=== PATIENT | female | born 1990 | race Caucasian/White ===

== ENCOUNTER 2022-11-14 08:29 | Outpatient (CLI) | payer BC, SELFPAY ==
--- NOTE | 2022-11-14 08:45 | CRLHL7_ITS ---
For Patients: As a result of the Century Cures Act, medical imaging exams and procedure reports are released immediately into your electronic medical record. You may view this report before your referring provider. If you have questions, please contact your health care provider. INDICATION: First trimester scan, establish dates. COMPARISON: None. TECHNIQUE: Real-time south-scale imaging of the pelvis was performed. FINDINGS: Sonographic imaging demonstrates a single living intrauterine gestation. The embryo demonstrates a regular cardiac rate measuring 171 beats per minute. The embryo`s crown-rump length measurement of 1.7 cm corresponds to a gestational age of 8 weeks 1 day with a sonographic due date of 06/25/2023. There is a normal-appearing yolk sac. There are no gross abnormalities noted within the embryo at this early state of development. The gestational sac has a normal appearance. There is no evidence of a perigestational hemorrhage. The amount of fluid within the sac appears appropriate for gestational age. The cervix is closed. The myometrium appears normal. The ovaries are of normal size. Corpus luteal cyst right ovary. There are no suspicious fluid collections noted in the cul-de-sac. IMPRESSION: Normal first trimester OB ultrasound exam. Gestational age calculated at 8 weeks 1 day with a sonographic due date of 06/25/2023. Dictated by Jayme Roberto MD @ 11/14/2022 10:08:09 AM (Electronically Signed)
== END 2022-11-14 08:30 | disposition home or self-care (01) ==
LOC: US 08:30
PROVIDERS: Visit Provider Advanced Practice Midwife
DX: Z34.91 Encounter for supervision of normal pregnancy, unspecified, first trimester (principal); Z3A.08 8 weeks gestation of pregnancy
CPT/HCPCS: 76817; 86592; 86703; 86762; 86787; 86803; 86850; 86900; 86901; 87086; 87340

== ENCOUNTER 2023-02-05 14:51 | Outpatient (CLI) | payer BC, SELFPAY ==
--- NOTE | 2023-02-05 15:00 | CRLHL7_ITS ---
For Patients: As a result of the Century Cures Act, medical imaging exams and procedure reports are released immediately into your electronic medical record. You may view this report before your referring provider. If you have questions, please contact your health care provider. INDICATION: Evaluate anatomy. COMPARISON: 11/14/2022 TECHNIQUE: Real time south scale imaging of the fetus was performed as well as color Doppler analysis of the umbilical vessels. FINDINGS: Sonographic imaging demonstrates a single living intrauterine gestation. Fetus demonstrates a regular cardiac rate of 150 beats per minute. Fetus has a variable position. The placenta lies fundal posterior without evidence of placenta previa. The edge of the placenta is located 6.1 cm from the internal cervical os. Amniotic fluid volume appears normal. Single deepest vertical pocket: 6.0 cm. The cervix is closed and measures 3.7 cm in length. The composite ultrasound gestational age is calculated at 19 weeks 6 days with an estimated sonographic due date of 06/26/2023. The estimated weight is 336 grams which lies at the 38th %. The following biometric measurements were obtained: Biparietal diameter: 4.4 cm/19 weeks 2 days 12th% Head circumference: 16.3 cm/19 weeks 0 days 4th% Abdominal circumference: 15.6 cm/20 weeks 5 days 60th% Femur length: 3.2 cm/19 weeks 6 days 26th% The HC/AC ratio measures: 1.04 range (1.08-1.26) On anatomic survey, there is a normal appearance of the cerebral ventricles, cavum septi pellucidi, cisterna magna and cerebellum. The nose, lips, and facial profile appear normal. The cervical, thoracic and lumbar spine are well visualized and appear normal. There is a normal four-chamber heart view and the left and right ventricular outflow tracts appear normal. The diaphragm and stomach appear normal. The kidneys and bladder also appear normal. There is a normal three-vessel cord and cord insertion site. The four extremities appear normal. IMPRESSION: Normal OB ultrasound exam with concordance of clinical and sonographic dating. No intrinsic abnormalities noted on anatomic survey. Dictated by Jayme Roberto MD @ 02/06/2023 12:51:11 PM (Electronically Signed)
== END 2023-02-05 14:52 | disposition home or self-care (01) ==
LOC: US 14:52
PROVIDERS: PCP Advanced Practice Midwife; Visit Provider Advanced Practice Midwife
DX: Z34.92 Encounter for supervision of normal pregnancy, unspecified, second trimester (principal); Z3A.19 19 weeks gestation of pregnancy
CPT/HCPCS: 76805

== ENCOUNTER 2023-04-03 08:14 | Outpatient (CLI) | payer BC, SELFPAY | END 2023-04-03 08:15 | disposition home or self-care (01) | LOC: NFLDREF 04-05 09:08 | PROVIDERS: PCP Advanced Practice Midwife; Referring Provider Advanced Practice Midwife; Visit Provider Advanced Practice Midwife | DX: Z34.93 Encounter for supervision of normal pregnancy, unspecified, third trimester (principal) | CPT/HCPCS: 86592 ==

== ENCOUNTER 2023-05-10 07:16 | Outpatient (CLI) | payer BC, SELFPAY ==
[2023-05-10 07:25] VITALS: PULSE 83; O2SAT 99
[2023-05-10 07:30] VITALS: PULSE 85; O2SAT 98
[2023-05-10 07:35] VITALS: RESP 16; TEMP 36.7
[2023-05-10 07:36] VITALS: BP 118/65; PULSE 81
[2023-05-10 08:32] LABS: Appearance Urine Clear (Clear); Bilirubin Urine Negative (Negative); Blood Urine Negative (Negative); Color Urine Yellow (Yellow); Glucose Urine Negative (Negative); Ketones Urine Negative (Negative); Leukocyte Esterase Urine Negative (Negative); Nitrite Urine Negative (Negative); Protein Urine Trace (Negative); Specific Gravity Urine 1.015 (1.000-1.030); Urobilinogen Urine 0.2 (0.2-1.0); pH Urine 8.5 (5.0-8.5)
[2023-05-10 08:55] LABS: Bacteria Urine Few; RBC Urine 0-2 (0-2); WBC Urine 0-2 (0-5)
[2023-05-10 08:56] LABS: Trichomonas No Trichomonas Seen (None Seen); Yeast No Yeast Seen (None Seen)
[2023-05-10 08:57] LABS: Clue Cells No Clue Cells Seen (None Seen)
--- NOTE | 2023-05-10 09:27 | PC.OBNST ---
NST Note NST Note Start: 05/10/23 07:21 Freq: ONCE Status: Active Protocol: Document 05/10/23 09:25 TRICIA (Rec: 05/10/23 09:27 TRICIA [id number]) NST Note 2 Para (# of births) 1 EDC 06/23/23 Gestational Age In Weeks & Days 33 Weeks & 5 Days Patient Presented with Complaint(s) of Contractions/cramping,Vaginal bleeding,Decreased movement Reactive Yes Appropriate for Gestational Age Yes OLIVIER Ramos, RN Date 05/10/23 Reactive Yes Appropriate for Gestational Age Yes OLIVIER Morel RNC Date 05/10/23 OB NST charge Yes Complete NST Note via Write Note Yes The provider's electronic signature indicates the NST is reactive/appropriate for gestational age. *Note to provider: If an addendum is required, open the patient's chart and click on the note under the Nurse/Allied Health tab.
== END 2023-05-10 09:19 | disposition home or self-care (01) ==
LOC: OB OUT 07:16 → OB 07:17
PROVIDERS: Advanced Practice Midwife; PCP Advanced Practice Midwife; Visit Provider Advanced Practice Midwife
DX: O47.03 False labor before 37 completed weeks of gestation, third trimester (principal); Z3A.33 33 weeks gestation of pregnancy
CPT/HCPCS: 59025; 81003; 81015; 87086; 87210; 99213

== ENCOUNTER 2023-06-05 09:32 | Outpatient (CLI) | payer BC, SELFPAY ==
[2023-06-06 11:30] LABS: Strep B DNA Probe NEGATIVE (Negative)
[2023-06-06 11:42] LABS: Strep B Pen/Amox Allergy No
== END 2023-06-05 09:33 | disposition home or self-care (01) ==
PROVIDERS: PCP Advanced Practice Midwife; Visit Provider Advanced Practice Midwife
DX: Z34.93 Encounter for supervision of normal pregnancy, unspecified, third trimester (principal); Z3A.37 37 weeks gestation of pregnancy
CPT/HCPCS: 87081; 87653

== ENCOUNTER 2023-06-25 07:40 | Inpatient (IN) | payer BC, SELFPAY ==
[2023-06-25] VITALS (19 sets, daily range): BP systolic 112–132; BP diastolic 64–80; PULSE 66–88; RESP 16–18; TEMP 36.6–37.5; O2SAT 97–100; BMI 26.1
--- NOTE | 2023-06-25 07:52 | W.PM.LDBA ---
Subjective History of Present Illness Time Seen by Provider: 07:52 Date Seen: 06/25/23 Comments: Gretchen is being admitted to Labor and Delivery for active labor. She is a 33 year old G 2 P 1 at?40.2 weeks gestation. Her full history and physical was dictated by Camille on 06/05/23. Please see this for details. She states ctx started at 0600. Denies SROM. She is coping well with labor pain/contractions. Lance is with her for support. She is requesting an epidural for pain management. OB Problem List: : Lance, son: Amarjit H&P done by Joshua Hanna CNM on 06/05/2023 1. Remote Hx of Chlamydia, 2013 per patient Declined gc/c swab at [facility], Offer urine screening at 12 wk visit: declined 2. History of abnormal pap LISL in 2013, normal since Most recent 10/2022 NILM, HPV neg 3. Anemia. Hgb 10.2 at 28wks. Recommended EOD iron. Made diet changes. 34 weeks: 10.6 OB - Problem Based A/P Additional Plan (1) Uterine contractions: Status: Acute Plan at 40.2 weeks GBS negative Active labor complications: -anemia Labor complications -Variable decels noted w/ ctx on admit 1. Admit to L & D 2. Pt turned to her side to help with decels, which seemed to resolve. Will continue to monitor, position changes as needed. 3. Candidate for analgesia of choice. Requesting an epidural 4. Continuous monitoring r/t decels and epidural 5. IV access r/t epidural request 6. Expectant management at this time. 7. Anticipate progress to NVD. Delivery/Labor/Induction Plan Plan: expectant management OB Exam Physical Exam Narrative: VSS, afebrile? General Appearance:? Calm, cooperative.? No acute distress.? Normal affect.? Psychiatric Exam: Alert and oriented, appropriate affect? HEENT: normocephalic, neck supple, full ROM? Respiratory:? Symmetrical chest wall movement.? Normal respiratory effort.? Clear to auscultation? Cardiac:? regular rate and rhythm? Abdomen: Gravid, non tender? Extremities:? normal and trace edema? Skin: warm, dry.??? Ctx:? Q 1-3 min apart.? ? Moderate?- Strong? FHTs:? Baseline: 135.? Variability: moderate.?? Accels: none noted shortly after admit.??? Decels:? Variable decels w/ ctx.? SVE: 5-6/100/-1? Membranes: intact? Detailed Labor and Delivery Exam Patient Gravid: Yes
[2023-06-25] MEDS: LACTATED RINGERS 1000 ML 1,000 ML 1200 ML IV (08:05)
[2023-06-25] MEDS: OXYTOCIN 30 unit/500 ML in NS 30 UNIT/500 ML BAG 300 UNIT IVPB (08:19)
[2023-06-25 08:20] LABS: Basophils Absolute Auto 0.02 K/uL (0.00-0.30); Basophils Percent Auto 0.2 % (0.0-3.0); Eosinophils Absolute Auto 0.04 K/uL (0.00-0.50); Eosinophils Percent Auto 0.5 % (0.0-7.0); Hematocrit 35.7 % (33.0-51.0); Hemoglobin* 11.9 gm/dL (12.0-16.0); Immature Granulocytes Abs Auto 0.01 K/uL (0.00-0.30); Immature Granulocytes Pct Auto 0.1 %; Lymphocytes Percent Auto 25.2 % (20-44); Mean Corpuscular HGB Conc 33 gm/dL (32-36); Mean Corpuscular Hemoglobin 31 pg (26-34); Mean Corpuscular Volume 94 fL (80-100); Monocytes Percent Auto 7.1 % (0.0-11.0); Neutrophils Absolute Auto 5.84 K/uL (1.7-7.0); Neutrophils Percent Auto 66.9 % (42.0-72.0); Platelet Count* 269 K/uL (140-440); RDW Coefficient of Variation % 13.6 % (11.5-15.5); Red Blood Count 3.81 m/uL (4.00-5.20); White Blood Count* 8.73 K/uL (4.50-11.00)
[2023-06-25 08:22] LABS: Slide Review Reflex No
[2023-06-25] MEDS: miSOPROStoL 800 MCG/4 TABLET PR (08:23)
--- NOTE | 2023-06-25 08:36 | W.PM.OBVAGDE ---
OB Procedure Vag Delivery Mother Details Mother Details: The patient is a 33 year-old, 2, Para 1, admitted on 06/25/23 at 40.2 Days gestation. : 2 Para: 2 Weeks Gestation: 40.2 Admission Date: 06/25/23 Additional Details Amniotic Membrane Status: SROM Amniotic Membrane Rupture Date: 06/25/23 Amniotic Membrane Rupture Time: 08:18 Amniotic Membrane Fluid Description: Clear Analgesia/Anesthesia Type: None Waterbirth: No Pitcoin: No ([facility] only) Intrapartal Events: Precipitous Labor <3 Hrs Labor Onset: 06:00 Complete: 08:10 Pushin:10 Heart: heart tones during second stage:145, mod variability prior to pushing. Audibly down to 60-80s w/ variable decels during pushing. Return to baseline 100-120 briefly between. Delivery Details Delivery Date: 06/25/23 Delivery Time: 08:18 Route of delivery: Gender: Female Viability: Alive; Heart Rate Present Position at Delivery: OA Delivery Details: Gretchen arrived from home with strong frequent ctx. On admit she was 5-6 cm, but shortly after c/o increased pressure. SVE, very small anterior lip/+1 station. Mildly bearing down with ctx. Variable ctx noted w/ ctx/pushing. Pt encouraged to push, with quick progress. head delivered, and nuchal cord noted. Gentle traction applied in attempt to reduce it, and noted to be tight. Decision made to delivery through, but prior to removing the gentle traction, cord avulsed. Body delivered quickly at that time, and side of cord grasped firmly as abdomen delivered. Held tightly until able to clamp with hemostat. Infant to prewarmed open warmer, but noted to be vigorous prior to transfer to warmer. At 0818 a viable? female infant delivered in vertex OA presentation over intact perineum via spontaneous vaginal?delivery.? Infant weight pending. ? 8 at 1 minute and 9 at 5 minutes. ?Shoulder dystocia: no. ?Nuchal cord: yes, right, avulsed w/ delivery. Placenta delivered spontaneously and complete at 0822 with a 3 vessel cord. Marginal cord insertion. Mother and infant were stable after?delivery. Lacerations:? Bilateral periurethral lacerations, not bleeding, not repaired Blood loss: 225 mL. Blood loss measurement type: QBL? 1 Minute Interval Total Score: 8 5 Minute Interval Total Score: 9 Additional Details Shoulder Dystocia: No Placenta Delivery Time: 08:22 Placental Delivery Description: Spontaneous Procedure Done: Global Blood Loss: 225 Laceration: Periurethral - 1st Degree Episiotomy Description: None Blood Loss Measurement Type: QBL Bakri Used: No Sponge/Need Count Correct: Yes Cord Vessel Description: 3 Vessels, Nuchal Cord, Tight and Avulsion Event Summary Status: Mother and were stable after delivery. Disposition: floor
[2023-06-26] VITALS: BP 118/68; PULSE 79; RESP 18; TEMP 36.6; O2SAT 96
[2023-06-26 04:45] VITALS: BP 118/71; PULSE 71; RESP 18; TEMP 36.4; O2SAT 97
--- NOTE | 2023-06-26 08:07 | PM.OBDSVD1 ---
DS: Providers Provider Date Seen: 06/26/23 Date of admission: 06/25/23 07:40 Primary care physician: Conchita Hanna CNM Admitting Clinician: Alisha Loyd CNM Attending Physician on discharge: Alisha Loyd CNM Date of Discharge: 06/26/23 DS: Diagnosis Discharge Diagnosis (1) care following vaginal delivery: Status: Acute (2) Lactating mother: Status: Acute Exam Narrative: Exam Narrative: GENERAL APPEARANCE:? normal affect, alert, no distress? MOOD:? appropriate? CHEST:? clear to auscultation and percussion? HEART:? regular rate and rhythm? ABDOMEN:? soft, non-tender the uterine fundus is 2 cm Below Umbilicus, Midline and is appropriate for the stage of recovery. ? PERINEUM:? mild edema of the perineum, there is bilateral periurethral (not repaired) that is healing well.? EXTREMITIES:? normal and no edema? Patient has no complaints? No active bleeding?? Doing well? She is requesting discharge home.? Const: Vital Signs, click to edit/add: Vital Signs - 24 hr 06/25/23 08:14 06/25/23 08:19 06/25/23 08:26 Temperature Pulse Rate 67 Pulse Rate [Pulse Oximeter] Respiratory Rate Blood Pressure 124/66 Blood Pressure [Le ft Arm] Pulse Oximetry 100 [facility] 08:41 06/25/23 08:41 06/25/23 08:56 Temperature 98.3 F Pulse Rate 76 75 Pulse Rate [Pulse Oximeter] Respiratory Rate 18 Blood Pressure 125/77 132/66 Blood Pressure [Le ft Arm] Pulse Oximetry [facility] 06/25/23 09:11 06/25/23 09:26 06/25/23 09:26 Temperature 98.6 F Pulse Rate 72 68 Pulse Rate [Pulse Oximeter] Respiratory Rate 16 Blood Pressure 122/70 122/73 Blood Pressure [Le ft Arm] Pulse Oximetry [facility] 06/25/23 09:41 06/25/23 09:41 06/25/23 09:56 Temperature 98.7 F Pulse Rate 72 69 Pulse Rate [Pulse Oximeter] Respiratory Rate 16 Blood Pressure 127/80 124/79 Blood Pressure [Le ft Arm] Pulse Oximetry [facility] 06/25/23 10:11 06/25/23 10:26 06/25/23 10:41 Temperature Pulse Rate 76 78 66 Pulse Rate [Pulse Oximeter] Respiratory Rate Blood Pressure 119/78 114/65 117/67 Blood Pressure [Le ft Arm] Pulse Oximetry Oxygen Delivery Me thod 06/25/23 10:41 06/25/23 11:29 06/25/23 11:45 Temperature 98.7 F 99.5 F 97.9 F Pulse Rate Pulse Rate [Pulse Oximeter] 76 Respiratory Rate 16 16 Blood Pressure Blood Pressure [Le ft Arm] 112/64 Pulse Oximetry 98 Oxygen Delivery Me thod Room Air 06/25/23 15:25 06/25/23 21:00 06/26/23 00:00 Temperature 98.6 F 98.4 F 97.8 F Pulse Rate Pulse Rate [Pulse Oximeter] 73 77 79 Respiratory Rate 18 18 18 Blood Pressure Blood Pressure [Le ft Arm] 129/77 118/72 118/68 Pulse Oximetry 97 97 96 Oxygen Delivery Me thod Room Air Room Air Room Air 06/26/23 04:45 Temperature 97.5 F L Pulse Rate Pulse Rate [Pulse Oximeter] 71 Respiratory Rate 18 Blood Pressure Blood Pressure [Le ft Arm] 118/71 Pulse Oximetry 97 Oxygen Delivery Me thod Room Air Documenting provider has reviewed patient's vital signs: yes OB - DS: Summary Hospital Course Hospital Course: Patient is a 33year old, G 2 now P 2? admitted on 06/25/23 at 40 Weeks, 2 Days gestation for active labor.? She had an uncomplicated vaginal delivery.? She delivered a viable female infant.? She is breast feeding and reports things are well.? the patient has done well.? Her pain is well controlled with current medications.? She has no new complaints.? Vitals have been stable. She has remained afebrile. She is voiding without difficulty. She is passing gas and has had a small bowel movement. She is ambulating and denies any dizziness. She is planning mini pill for control.?She declines a ibuprofen prescription as she has needed very little medications since delivery. Peripartum Data delivery method: Vaginal Laceration description: Periurethral - 1st Degree (not repaired) Episiotomy description: None Infant Gender: Female Discharge Plan: Home Status at Discharge Functional status at discharge: independent ambulation Overall status at discharge: patient is progressing back to baseline Time Spent with Patient Time attestation: Total time spent providing and/or coordinating discharge services: Discharge Plan Discharge Disposition: Home, Self-Care Date of Admission: 06/25/23 07:40 Attending Provider on Discharge: Shawna Briseno Primary Care Provider: Conchita Hanna Condition: Stable Anticipated Discharge Date/Time: 06/26/23 10:00 Discharge Medications: New docusate sodium 100 mg Capsule 100 mg PO DAILY Qty: 60 0RF Rx Instructions: Take 1-2 tablets daily as needed for constipation. Continued DHA 200 mg capsule 200 mg PO DAILY Discharge Orders: Discharge Order (Routine); Ordered 06/26/23 Ordered By: Shawna Briseno Consulting provider completed their portion of the discharge: Yes Patient Education: OB Vaginal/Breast Feeding Activity Level: Activity as Tolerated Discharge Diet: Regular Follow Up Appointments: [facility] [Provider Group] Conchita Hanna CNM [Primary Care Provider] - Forms: [employer] Info Instructions
[2023-06-26 08:33] VITALS: BP 123/79; PULSE 71; RESP 17; TEMP 36.4; O2SAT 96
== END 2023-06-26 10:50 | disposition home or self-care (01) | DRG 560 ==
LOC: OB 07:41
PROVIDERS: Admitting Provider Advanced Practice Midwife; PCP Advanced Practice Midwife; Visit Provider Advanced Practice Midwife
DX: O70.0 First degree perineal laceration during delivery (principal); Z3A.40 40 weeks gestation of pregnancy; Z37.0 Single live birth
CPT/HCPCS: 36415; 85025; 86850; 86900; 86901; A9270; J7120

== ENCOUNTER 2024-09-23 15:57 | Outpatient (CLI) | payer BC, SELFPAY | END 2024-09-23 15:58 | disposition home or self-care (01) | PROVIDERS: Visit Provider Otolaryngology | DX: J34.2 Deviated nasal septum (principal); Z13.29 Encounter for screening for other suspected endocrine disorder | CPT/HCPCS: 83036; 83516; 84443; 86038; 86431; 86618 ==

== ENCOUNTER 2024-09-30 09:17 | Outpatient (CLI) | payer BC, SELFPAY ==
--- NOTE | 2024-09-30 10:00 | CRLHL7_ITS ---
For Patients: As a result of the Century Cures Act, medical imaging exams and procedure reports are released immediately into your electronic medical record. You may view this report before your referring provider. If you have questions, please contact your health care provider. Indication: Chronic sinusitis, congestion Technique: Performed without IV contrast Comparison: None available Findings: Frontal sinuses: Clear. Ethmoid sinuses: Clear. Maxillary sinuses: Minimal mucosal thickening in both maxillary sinuses. The maxillary sinus drainage pathways are patent on both sides. Sphenoid sinuses: Clear, including both sphenoethmoidal recesses. Nasal Cavity: Mild mucous is present on the right. No polyp. Nasal septum is midline. No TMJ abnormalities identified. The visualized portions of the orbits, intracranial contents and upper soft tissue neck are grossly negative. Impression: 1. Minimal maxillary sinus disease. 2. Nasal septum is midline. Please note that all CT scans at this facility use dose modulation, iterative reconstruction, and/or weight-based dosing when appropriate to reduce radiation dose to as low as reasonably achievable. Dictated by Jayme Roberto MD @ 09/30/2024 12:55:21 PM (Electronically Signed)
== END 2024-09-30 09:18 | disposition home or self-care (01) ==
LOC: CT 09:18
PROVIDERS: Visit Provider Otolaryngology
DX: J32.9 Chronic sinusitis, unspecified (principal); J32.0 Chronic maxillary sinusitis
CPT/HCPCS: 70486

== ENCOUNTER 2024-10-12 09:25 | Outpatient (CLI) | payer BC, SELFPAY | END 2024-10-12 09:26 | disposition home or self-care (01) | PROVIDERS: Visit Provider Physician Assistant | DX: R76.8 Other specified abnormal immunological findings in serum (principal); Z13.220 Encounter for screening for lipoid disorders; Z13.29 Encounter for screening for other suspected endocrine disorder | CPT/HCPCS: 80061; 84443; 86038; 86039 ==

== ENCOUNTER 2025-02-17 15:39 | Outpatient (CLI) | payer BC, SELFPAY | END 2025-02-17 15:40 | disposition home or self-care (01) | PROVIDERS: PCP Family Medicine; Visit Provider Family Medicine | DX: R53.83 Other fatigue (principal); R76.8 Other specified abnormal immunological findings in serum; I77.82 Antineutrophilic cytoplasmic antibody [ANCA] vasculitis | CPT/HCPCS: 80053; 82306; 82607; 82728; 83540; 83550; 84443 ==

== ENCOUNTER 2025-09-28 12:32 | Day surgery (SDC) | payer BC, SELFPAY ==
--- OUTSIDE RECORDS SUMMARY | 2025-08-24 09:30 | XMS_ITS | Encounter Summary ---
Author Organization [facility] Address [address] [place] [id number] Care Team Providers [employer] Name Role Phone None Reported, Pcp Primary Care Provider Unavail able Reason for Visit * Outpatient (Routine) - Closed Specialty Diagnoses / Procedures Referred By Yue patel Referred To Contact Diagnoses Saddle Nose Ashley South P.A.-C. [address] [place] [phone] Phone: tel: fax: [facility] Referral ID Status Reason Start Date Expiration Date Visits Re quested Visits Authorized [id number] Closed 07/05/2025 01/04/2027 1 1 Encounter Details Date Type Department Care Team (Latest Contact Info) Description 08/24/2025 9:30 AM CDT Comprehensive [facility] [place], [place] [address] [place] [phone] Zachariah Dow III, M.D. 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 No 12/29/2024 Hunger Vital Sign Answer Date Recorded Within the past 12 months, y ou worried that your food would run out before you got the money to buy more. Never true 12/29/19 25 Within the past 12 months, t he food you bought just didn't last and you didn't have money to get more. Never true 12/29/2024 PRAPARE - Transportation Answer Date Re corded In the past 12 months, has l ack of transportation kept you from medical appointments or from getting medications? No 12/03 In the past 12 months, has l ack of transportation kept you from meetings, work, or from getting things needed for daily living? No 12/29/2024 Housing Stability Answer Date Recorded What is your living situation today? I have a [facility] place to live 12/29/2024 Comments Unknown Sex and Gender Information Value Date Recorded Sex Assigned at Female 01/01/2025 8:04 AM ASSEMBLER ARRANGER Legal Sex Female 7:11 AM ASSEMBLER ARRANGER Gender Identity Female 01/01/2025 8:04 AM ASSEMBLER ARRANGER Sexual Orientation Straight 01/01/2025 8: 04 AM ASSEMBLER ARRANGER documented as of this encounter Progress Notes * Ashley South P.A.-C. - 08/24/2025 9:30 AM CDT SUBJECTIVE CHIEF COMPLAINT / REASON FOR VISIT Gretchen Abdi is a 35 y.o. female who returns for discussion of nasal surgery. 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 She has also been started on budesonide and mupirocin rinses by our Rhinology colleagues and has noticed a significant improvement in her nasal crusting and pain since using these for the past few months. She feels that she is doing well and is in terested in proceeding with surgery for correction of the saddle nose deformity and nasal obstruction. She continues to be a non-smoker. She has not had prior surgery on her nose or chest. OBJECTIVE PHYSICAL EXAMINATION Physical Exam General: Alert and oriented. No acute distress. Appearance: Well nourished. Behavior: Appropriate, communicative. Head and Face: Normocephalic, atraumatic. No weakness. Skin: Color, texture normal. Eyes: EOMI. Nose: Skin thickness: medium. Upper third: straight. Middle third: widened, inverted V deformity. Lower third: convex lateral crura. Base: triangular, no collapse with normal inspiration. Profile: saddle nose deformity. Septum: largely straight. Turbinates: enlarged on the right. Mucosa: mildly inflamed with some crusting present. Decongestion: improvement with decongestion. Neuro/Psychiatric: Alert and oriented x 3, affect normal. Good voice quality. 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 Since her disease is in remission, we can proceed with surgery. To address the nasal destruction (saddle nose deformity) that is a consequence of the vasculitis, we have offered her a: 1) Septorhinoplasty 2) Inferior turbinate outfracture 3) Costal cartilage harvest This cannot be corrected with a septoplasty alone. Surgery would be performed under general anesthesia on an outpatient basis. We reviewed the recovery process and expectations. She is in agreement with photos simulating the surgical result. We will submit for PWA and see her back for a listing visit prior to surgery. She is hopeful to have surgery yet this year. All questions and concerns were addressed. Patient understands and agrees with the plan. Time spent with patient (counseling time more than 50% of visit:) 20 minutes. Procedures documented in this encounter Plan of Treatment Upcoming Encounters Date Type Department Care Team (Latest Contact Info) Description 09/30/2025 7:30 AM CDT Appointment Department of Laboratory Medicine in [place], [place] [address] [place] [phone] Rodo Yeh M.D. [address] [place] [phone] 11/23/2025 4:00 PM ASSEMBLER ARRANGER Procedure visit [facility] [place], [place] [address] [place] [phone] Zachariah Dow III, M.D. [address] [place] [phone] 11/24/2025 8:00 AM ASSEMBLER ARRANGER Hospital Encounter Post Anesthesia Care Unit in [place], [place] [address] [place] [phone] Zachariah Dow III, M.D. [address] [place] [phone] 11/24/2025 8:00 AM ASSEMBLER ARRANGER - 11/24/2025 3:27 PM ASSEMBLER ARRANGER Surgery [facility] [address] [place] [phone] Zachariah Dow III, M.D. [address] [place] [phone] SEPTORHINOPLASTY 11/26/2025 8:30 AM ASSEMBLER ARRANGER Procedure visit [facility] [place], [place] [address] [place] [phone] Zachariah Dow III, M.D. [address] [place] [phone] 12/01/2025 8:00 AM ASSEMBLER ARRANGER Procedure visit [facility] in [place], [place] [address] [place] [phone] Ashley South P.A.-C. 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
[2025-09-28] VITALS (19 sets, daily range): BP systolic 107–130; BP diastolic 58–82; PULSE 60–81; RESP 16–18; TEMP 36.8–38; O2SAT 95–100; BMI 20.6
--- NOTE | 2025-09-28 12:41 | ED.GENADULT ---
HPI - General Adult General Chief complaint: Abdominal Pain Stated complaint: Abdominal pain Time Seen by Provider: 09/28/25 12:36 History of Present Illness HPI narrative: Patient presents to the emergency department complaining of abdominal pain that started at about 0900 this morning. Pain is across lower abdomen. Patient denies any vaginal bleeding. Denies any nausea, vomiting, or diarrhea. 35-year-old woman presenting to the emergency department with complaint of low abdominal pain seems to be going across her lower abdomen. Constant. Sharp. Some radiation into the back. Not actually with any nausea. Did have breakfast around 8:00 a.m. An hour later started to have some pain she was at work. And feel like this is related to needing a bowel movement or related to gas. Has been experiencing regular bowel movements with 1 today that did not affect her pain. No dysuria. No history of ovarian cysts or abdominal surgeries. No fever. Related Data Home Medications ?Medication ?Instructions ?Recorded ?Confirmed budesonide 0.5 mg/2 mL suspension 0.5 mg inhalation BID 02/17/25 09/28/25 for nebulization folic acid 1 mg tablet 1 mg PO QDAY 02/17/25 09/28/25 methotrexate (PF) 25 mg/0.4 mL 25 mg subcut QWEEK 02/17/25 09/28/25 subcutaneous auto-injector mupirocin 2 % topical ointment 1 applic topical BID 02/17/25 09/28/25 Previous Rx's ?Medication ?Instructions ?Recorded norethindrone acetate 1 mg-ethinyl 1 tab PO QDAY #63 tabs 12/24/24 estradiol 20 mcg tablet (Junel) Allergies Allergy/AdvReac Type Severity Reaction Status Date / Time No Known Drug Allergies Allergy Verified 09/28/25 17:08 Review of Systems Status of ROS: Reports: 6 or more systems reviewed and unremarkable except as noted in History and below [facility] Medical History Low grade squamous intraepith lesion on cytologic smear vagina (lgsil) ?R87.622 - Low grade squamous intraepithelial lesion on cytologic smear of vagina (LGSIL) (ICD-10) Surgical History Vaginal delivery ?O80 - Encounter for full-term uncomplicated delivery (ICD-10) H/O wisdom tooth extraction (2013) ?K08.409 - Partial loss of teeth, unspecified cause, unspecified class (ICD-10) Family History Maternal Grandfather Skin cancer Liver cancer, Onset Age: 84 Paternal Grandmother No problems noted. 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 Partner: Lance, Business Analysis Specialist [place]; Lives with: Amarjit Lucas Pets: Cat Abuse: Denies past/present Special Diet: Denies Ok with a blood transfusion: yes Culture or anabaptism beliefs: denies RISK FACTORS Exercise Times/wk: Cardio and Strength Training, gym daily Depression/Anxiety: No hx Seat Belt Use: Routinely Smoking: Denies past/present Alcohol/day: Denies while ; Occasional/social Caffeine: 1 cup of coffee Drug Use: Denies past/present Chicken Pox: Yes as a child MRSA: Denies What is your current living situation?: I presently have a place to live Problems where you live: no known problems In the past 12 months, utilities in danger of being shut off: no In past 12 months, lack of transportation kept you from medical appts, meetings, work, or getting things needed for daily living: no In the past 12 mos, have been you worried that your food would run out before you had money to buy more?: never true In the past 12 mos, the food you bought just didn't last and you didn't have money to buy more?: never true Smoking Status: Never smoker How often does anyone, including family, friends and others, physically hurt you: never How often does anyone, including family, friends and others, insult or talk down to you: never How often does anyone, including family, friends and others, threaten you with harm: never How often does anyone, including family, friends and others, scream or curse at you: never Exam Narrative: Exam Narrative: Pleasant. Calm. Breathing easily. Lungs appear clear. The heart in regular rate and rhythm without murmur or gallop. Abdomen is soft and quite tender in the right lower quadrant a little bit into the adnexal area and then across the abdomen. No peritoneal signs. No flank pain. Skin is warm and dry without apparent rash. She is well-perfused. Const: Vital Signs, click to edit/add: Vital Signs - 24 hr 09/28/25 12:34 09/28/25 14:02 09/28/25 14:03 Temperature 98.3 F Pulse Rate 63 72 Pulse Rate [Right Pulse Oximeter] 67 Respiratory Rate 18 Blood Pressure 107/71 Blood Pressure [Ri ght Upper Arm] 115/71 Pulse Oximetry 100 100 100 Oxygen Delivery Me thod Room Air 09/28/25 14:15 Temperature Pulse Rate 79 Pulse Rate [Right Pulse Oximeter] Respiratory Rate Blood Pressure Blood Pressure [Ri ght Upper Arm] Pulse Oximetry 99 Oxygen Delivery Me thod Documenting provider has reviewed patient's vital signs: yes Course Vital Signs Vital signs: Initial Vital Signs Temperature 98.3 F 09/28/25 12:34 Temperature Source Temporal Artery Scan 09/28/25 12:34 Pulse Rate 67 09/28/25 12:34 Pulse Rhythm Regular 09/28/25 12:34 Pulse Strength 3+ Normal 09/28/25 12:34 Respiratory Rate 18 09/28/25 12:34 Blood Pressure 115/71 09/28/25 12:34 Blood Pressure Mean 85 09/28/25 12:34 Blood Pressure Position Sitting 09/28/25 12:34 Pulse Oximetry 100 09/28/25 12:34 Oxygen Delivery Method Room Air 09/28/25 12:34 Vital Signs Temperature 98.3 F 09/28/25 12:34 Pulse Rate 67 09/28/25 12:34 Respiratory Rate 18 09/28/25 12:34 Blood Pressure 115/71 09/28/25 12:34 Pulse Oximetry 100 09/28/25 12:34 Oxygen Delivery Method Room Air 09/28/25 12:34 Temperature 98.3 F 09/28/25 12:34 Pulse Rate 79 09/28/25 14:15 Respiratory Rate 18 09/28/25 12:34 Blood Pressure 107/71 09/28/25 14:02 Pulse Oximetry 99 09/28/25 14:15 Oxygen Delivery Method Room Air 09/28/25 12:34 Medications Administered Medications: Discontinued Medications Generic Name Dose Route Start Last Admin Trade Name Wendy PRN Reason Stop Dose Admin Hydromorphone HCl 0.5 mg 09/28/25 17:52 09/28/25 18:01 Hydromorphone 0.5 Mg/0.5 Ml Inj IVP 09/28/25 17:53 0.5 mg ONCE ONE Administration Sodium Chloride 1,000 mls @ 1,000 mls/hr 09/28/25 12:52 09/28/25 14:35 0.9 % Sodium Chloride 1000 Ml IV 09/28/25 13:51 Infused .Q1H ONE Infusion Ketorolac Tromethamine 30 mg 09/28/25 12:52 09/28/25 13:05 Ketorolac 30 Mg/Ml Inj IVP 09/28/25 12:53 30 mg ONCE ONE Administration Morphine Sulfate 4 mg 09/28/25 16:49 09/28/25 17:06 Morphine 4 Mg/Ml Inj IVP 09/28/25 16:50 4 mg ONCE ONE Administration Medical Decision Making MDM Narrative Medical decision making narrative: Would consider appendicitis leading in differential at this point. Does not appear to experiencing constipation. This could be ovarian cyst rupture although it seems to be little atypical for this in presentation and on exam. Does have vasculitis history; doubtful correlation here. Ectopic? Will be initiating IV. Ketorolac for pain. Normal saline. Imaging pending for confirmation. While rather slim, anticipate doing this imaging without IV contrast. By my independent review of CT imaging calcifications are noted in the right lower abdomen. Radiology over-read below INDICATION: Right lower abdominal pain. COMPARISON: None available. TECHNIQUE: CT of the abdomen and pelvis without intravenous contrast. Please note that all CT scans at this facility use dose modulation, iterative reconstruction, and/or weight-based dosing when appropriate to reduce radiation dose to as low as reasonably achievable. FINDINGS: The study is performed without intravenous contrast. This limits the sensitivity of the exam for the detection bowel pathology, focal lesions of the abdominopelvic viscera and vascular pathology including significant vascular stenosis, occlusion and dissection. ABDOMEN Liver: Normal contour and attenuation. No significant focal lesion. No intrahepatic biliary ductal dilatation. Gallbladder: Normal size. No pericholecystic inflammatory changes. Normal common duct caliber. Pancreas: Normal contour and attenuation. No peripancreatic inflammatory changes. No significant focal lesion. Normal main duct caliber. Spleen: Not enlarged. No significant focal lesion. Adrenal Glands: Symmetrical adrenal glands. No significant focal lesion. Kidneys: Normal bilateral renal attenuation. No significant focal lesion. No nephrolith. No dilatation of the intrarenal collecting systems. No ureteral stone. Nondilated ureters. Gastrointestinal tract: Mild prominence of the horizontal (3rd) duodenal segment in the midline (series 2; image 50) considered within physiologic limits of normal, most likely due to normal duodenal peristalsis. Otherwise normal caliber, attenuation and wall thickness of the gastrointestinal tract. No inflammatory changes. Normal small bowel mesentery. Multiple appendicoliths (series 4; images 39, 46). The appendix measures 9 mm in caliber, at the upper limit of normal. No significant periappendiceal fat stranding or free fluid is identified to indicate acute appendicitis. Vascular: Normal outer wall to outer wall abdominal aortic caliber. Patency and luminal caliber of the abdominopelvic arterial and venous vasculature cannot be assessed on this noncontrast study. Peritoneal Cavity/Retroperitoneum: No ascites. No adenopathy. PELVIS No bladder lesion is identified. No significant incidental findings related to the uterus or uterine adnexa. Small volume low density pelvic ascites within physiologic limits of normal. No adenopathy. SKELETON AND BODY WALL No acute or significant incidental findings. LOWER THORAX Partially included lower thoracic wall, lungs, pleural spaces and mediastinum are otherwise without significant incidental findings. IMPRESSION: 1. No findings to explain right lower abdominal pain. 2. Multiple appendicoliths (3) without associated imaging findings of acute appendicitis. Appendicoliths have been described in association with acute appendicitis. Patient management should be based upon clinical grounds. Management options include clinical follow-up, with or without follow-up imaging as clinically appropriate, and surgical consultation if indicated. 3. No other significant incidental findings. Small volume low-attenuation pelvic free fluid is considered to be within physiologic limits of normal. (NB: The study is performed without intravenous contrast. This limits the sensitivity of the exam for the detection bowel pathology, focal lesions of the abdominopelvic viscera and vascular pathology including significant vascular stenosis, occlusion and dissection.) Please note that all CT scans at this facility use dose modulation, iterative reconstruction, and/or weight-based dosing when appropriate to reduce radiation dose to as low as reasonably achievable. Dictated by Cullen Salinas MD @ 09/28/2025 3:37:17 PM Discuss these findings with General surgery. with Gretchen and her on the phone. Labs from 3 months ago that Gretchen available show what I would presume to be baseline absolute neutrophil count around 3 and half. Today is closer to 11. In consultation decided to have more definitive imaging with IV contrasted CT abdomen pelvis. Results are similar with measured 13 mm dilated appendix with number of appendicoliths. Still without periappendiceal inflammatory changes. Recommendations are to proceed with appendectomy sooner than later. Gretchen and her are in agreement. Anticipate arrival of General surgery and to OR for appendectomy. Pain has also been increasing and morphine was not helpful. Ordered for a dose of Dilaudid. INDICATION: Recheck for appy TECHNIQUE: CT abdomen and pelvis acquired with 58 cc Isovue 317 IV contrast. COMPARISON: CT abdomen and pelvis September 28, 2025 FINDINGS: Lower chest: Unremarkable. Liver: Normal in size and attenuation. No suspicious masses. Gallbladder and bile ducts: No stones or inflammation. No biliary dilatation. Pancreas: No mass or inflammation. Spleen: Normal in size. No masses. Adrenal glands: No suspicious mass. Kidneys: Bilateral kidneys are normal in size with symmetric enhancement. No nephrolithiasis or hydronephrosis. GI tract: No bowel obstruction. Redemonstration of few appendicolith, with a dilatation of appendix at the base measuring 13 millimeter, grossly similar to previous CT. There is no adjacent inflammatory changes. No localized bowel wall thickening or inflammation. Moderate fecal retention. Vasculature: Abdominal aorta is normal in caliber. Lymph nodes: No lymphadenopathy. Peritoneum/Abdominal Wall: No free air or significant free fluid. Pelvis: Unremarkable. Bones: Unremarkable for age. IMPRESSION: Redemonstration of dilatation of appendix at the base with few appendicoliths. No adjacent inflammatory changes to suspect imaging findings of acute appendicitis. Please note that all CT scans at this facility use dose modulation, iterative reconstruction, and/or weight-based dosing when appropriate to reduce radiation dose to as low as reasonably achievable. Dictated by Jyotsna Camejo MD @ 09/28/2025 5:35:22 PM Medical Records Medical records reviewed: Yes I reviewed the patient's medical records Lab Data Lab results reviewed: Yes I reviewed the patient's lab results Labs: Lab Results 10/28/25 10/28/25 Range/Units 13:10 14:18 WBC 12.45 H (4.50-11.00) K/uL RBC 3.73 L (4.00-5.20) m/uL Hgb 12.6 (12.0-16.0) gm/dL Hct 37.9 (33.0-51.0) % MCV 102 H (80-100) fL MCH 34 (26-34) pg MCHC 33 (32-36) gm/dL RDW Coeff of Edgardo 13.8 (11.5-15.5) % Plt Count 205 (140-440) K/uL Neut % (Auto) 87.2 H (42.0-72.0) % Lymph % (Auto) 7.1 L (20-44) % [place] % (Auto) 5.4 (0.0-11.0) % Eos % (Auto) 0.1 (0.0-7.0) % Baso % (Auto) 0.1 (0.0-3.0) % Neut # (Auto) 10.90 H (1.7-7.0) K/uL Lymph # (Auto) 0.90 (0.90-2.90) K/uL [place] # (Auto) 0.70 (0.00-0.90) K/UL Eos # (Auto) 0.00 (0.00-0.50) K/uL Baso # (Auto) 0.00 (0.00-0.30) K/uL Abs Immat Gran (auto) 0.00 (0.00-0.30) K/uL Imm/Tot Granulo (auto) 0.1 % Sodium 136 (135-149) mmol/L Potassium 3.9 (3.6-5.1) mmol/L Chloride 105 (96-114) mmol/L Carbon Dioxide 23 (20-32) mmol/L Anion Gap 8 (7-15) mEq/L BUN 19 (5-24) mg/dL Creatinine 1.0 (0.5-1.5) mg/dL Estimated Creat Clear 68.76 Estimated GFR 76 ml/min Glucose 123 H (60-115) mg/dL Calcium 9.1 (8.4-10.6) mg/dL Total Bilirubin 0.7 (0.1-1.5) mg/dL Direct Bilirubin 0.2 (0.0-0.5) mg/dL AST 32 (12-35) U/L ALT 33 (4-35) U/L Alkaline Phosphatase 40 (40-150) U/L C-Reactive Protein < 0.5 L (0.5-1.0) mg/dL Total Protein 7.2 (6.0-8.3) g/dL Albumin 4.5 (3.3-5.0) g/dL Urine Color Yellow (Yellow) Urine Appearance Cloudy A (Clear) Urine pH 8.5 (5.0-8.5) Ur Specific [place] 1.015 (1.000-1.030) Urine Protein Negative (Negative) Urine Glucose (UA) Negative (Negative) Urine Ketones 3+ A (Negative) Urine Blood Negative (Negative) Urine Nitrite Negative (Negative) Urine Bilirubin Negative (Negative) Urine Urobilinogen 0.2 (0.2-1.0) Ur Leukocyte Esterase Negative (Negative) Urine RBC 0-2 (0-2) Urine WBC 0-2 (0-5) Ur Squamous Epith Cells None (None-Few) Amorphous Sediment Moderate A (None) Urine Bacteria Moderate A (None) Urine HCG, Qual Negative (Negative) Discharge Plan Discharge Clinical Impression: Abdominal pain, Acute appendicitis Patient Disposition: XFER to OR Condition: Stable Follow Up/Referrals: Pratibha Banuelos MD [Primary Care Provider, [facility]]
--- NOTE | 2025-09-28 12:50 | CRLHL7_ITS ---
For Patients: As a result of the 21st Century Cures Act, medical imaging exams and procedure reports are released immediately into your electronic medical record. You may view this report before your referring provider. If you have questions, please contact your health care provider. INDICATION: Right lower abdominal pain. COMPARISON: None available. TECHNIQUE: CT of the abdomen and pelvis without intravenous contrast. Please note that all CT scans at this facility use dose modulation, iterative reconstruction, and/or weight-based dosing when appropriate to reduce radiation dose to as low as reasonably achievable. FINDINGS: The study is performed without intravenous contrast. This limits the sensitivity of the exam for the detection bowel pathology, focal lesions of the abdominopelvic viscera and vascular pathology including significant vascular stenosis, occlusion and dissection. ABDOMEN Liver: Normal contour and attenuation. No significant focal lesion. No intrahepatic biliary ductal dilatation. Gallbladder: Normal size. No pericholecystic inflammatory changes. Normal common duct caliber. Pancreas: Normal contour and attenuation. No peripancreatic inflammatory changes. No significant focal lesion. Normal main duct caliber. Spleen: Not enlarged. No significant focal lesion. Adrenal Glands: Symmetrical adrenal glands. No significant focal lesion. Kidneys: Normal bilateral renal attenuation. No significant focal lesion. No nephrolith. No dilatation of the intrarenal collecting systems. No ureteral stone. Nondilated ureters. Gastrointestinal tract: Mild prominence of the horizontal (3rd) duodenal segment in the midline (series 2; image 50) considered within physiologic limits of normal, most likely due to normal duodenal peristalsis. Otherwise normal caliber, attenuation and wall thickness of the gastrointestinal tract. No inflammatory changes. Normal small bowel mesentery. Multiple appendicoliths (series 4; images 39, 46). The appendix measures 9 mm in caliber, at the upper limit of normal. No significant periappendiceal fat stranding or free fluid is identified to indicate acute appendicitis. Vascular: Normal outer wall to outer wall abdominal aortic caliber. Patency and luminal caliber of the abdominopelvic arterial and venous vasculature cannot be assessed on this noncontrast study. Peritoneal Cavity/Retroperitoneum: No ascites. No adenopathy. PELVIS No bladder lesion is identified. No significant incidental findings related to the uterus or uterine adnexa. Small volume low density pelvic ascites within physiologic limits of normal. No adenopathy. SKELETON AND BODY WALL No acute or significant incidental findings. LOWER THORAX Partially included lower thoracic wall, lungs, pleural spaces and mediastinum are otherwise without significant incidental findings. IMPRESSION: 1. No findings to explain right lower abdominal pain. 2. Multiple appendicoliths (3) without associated imaging findings of acute appendicitis. Appendicoliths have been described in association with acute appendicitis. Patient management should be based upon clinical grounds. Management options include clinical follow-up, with or without follow-up imaging as clinically appropriate, and surgical consultation if indicated. 3. No other significant incidental findings. Small volume low-attenuation pelvic free fluid is considered to be within physiologic limits of normal. (NB: The study is performed without intravenous contrast. This limits the sensitivity of the exam for the detection bowel pathology, focal lesions of the abdominopelvic viscera and vascular pathology including significant vascular stenosis, occlusion and dissection.) Please note that all CT scans at this facility use dose modulation, iterative reconstruction, and/or weight-based dosing when appropriate to reduce radiation dose to as low as reasonably achievable. Dictated by Cullen Salinas MD @ 09/28/2025 3:37:17 PM (Electronically Signed)
--- OUTSIDE RECORDS SUMMARY | 2025-09-28 13:02 | XMS_ITS | Encounter Summary ---
Author Organization [facility] Address [address] [place] [address] Care Team Providers Care Archival Records Clerk Name Role Phone None Reported, Pcp Primary Care Provider Unavail able Reason for Visit * Reason Onset Date Comments Med Question 09/10/2025 Encounter Details Date Type Department Care Team (Latest Contact Info) Description 09/10/2025 Clinical Communication Department of Otorhinolaryngology in [place], [place] [address] [place] [phone] Zachariah Dow III, M.D. [address] [place] [phone] Med Question Social History Tobacco Use Types Packs/Day Years Used Date Smoking Tobacco: Never Passive Smoke Exposure: Never Smokeless Tobacco: Never Alcohol Use Standard Drinks/Week Comments Yes 3 (1 standard drink = 0.6 oz pur e alcohol) [facility] Utilities Answer Date Recorded In the past 12 months has e [employer], gas, oil, or water [employer] threatened to shut off services in your [...] your living situation today? I have a [facility] place to live 12/29/2024 Comments Unknown Sex and Gender Information Value Date Recorded Sex Assigned at Female 01/01/2025 8:04 AM CLEARING TUB WORKER Legal Sex Female 7:11 AM CLEARING TUB WORKER Gender Identity Female 01/01/2025 8:04 AM CLEARING TUB WORKER Sexual Orientation Straight 01/01/2025 8: 04 AM CLEARING TUB WORKER documented as of this encounter Plan of Treatment Upcoming Encounters Date Type Department Care Team (Latest Contact Info) Description 09/30/2025 7:30 AM CDT Appointment Department of Laboratory Medicine in [place], [place] [address] [place] [phone] Rodo Yeh M.D. [address] [place] [phone] 11/23/2025 4:00 PM CLEARING TUB WORKER Procedure visit [facility] [place], [place] [address] [place] [phone] Zachariah Dow III, M.D. [address] [place] [phone] 11/24/2025 8:00 AM CLEARING TUB WORKER Hospital Encounter Post Anesthesia Care Unit in [place], [place] [address] [place] [phone] Zachariah Dow III, M.D. [address] [place] [phone] 11/24/2025 8:00 AM CLEARING TUB WORKER - 11/24/2025 3:27 PM CLEARING TUB WORKER Surgery [facility] [address] [place] [phone] Zachariah Dow III, M.D. [address] [place] [phone] SEPTORHINOPLASTY 11/26/2025 8:30 AM CLEARING TUB WORKER Procedure visit [facility] in [place], [place] [address] [place] [phone] Zachariah Dow III, M.D. [address] [place] [phone] 12/01/2025 8:00 AM CLEARING TUB WORKER Procedure visit [facility] in [place], [place] [address] [place] [phone] Ashley South P.A.-C. [address] [place] [phone] Scheduled Procedures Name Priority Associated Diagnoses Date/Ti me SEPTORHINOPLASTY Obstruction Nasal Saddle Nose 11/24/2025 8:00 AM CLEARING TUB WORKER HARVEST RIB GRAFT Obstruction Nasal Saddle Nose 11/24/2025 8:00 AM CLEARING TUB WORKER INFERIOR TURBINATE OUTFRACTURE Obstruction Nasal Saddle Nose 11/24/2025 8:00 AM CLEARING TUB WORKER documented as of this encounter Visit Diagnoses Not on filedocumented in this encounter Additional Health Concerns Infection Onset Date Last Indicated Resolved Time Protective Environment 01/22/2025 01/22/2025 documented as of this encounter Care Teams Archival Records Clerk Relationship Specialty Start Date End Date None Reported, Pcp PCP - General Family Medicine 02/11/25 documented as of this encounter
--- OUTSIDE RECORDS SUMMARY | 2025-09-28 13:02 | XMS_ITS | Clinical Summary ---
Author Organization [facility] Address [address] [place] [address] Care Team Providers Care Accounting Manager Cpa Name Role Phone None Reported, Pcp Primary Care Provider Unavail able Source Comments Patient records contain information from all sites at [facility]. For routine questions regarding patient records, call [phone] during business hours, M-F 8:00 AM - 5:00 PM Central Time. Record requests for emergency care only can be directed to [phone] at any time.[facility] Allergies No known active allergies Medications sesame oil with faizan geranium oil (50 mL) Administer 2 sprays into each nostril 2 (two) times a day. 50 mL 11 04/12/2025 6:22 PM CDT 5 Active Additional Information Patient taking differently:2 spray each nostrilDaily, Reported on 07/01/2025 folic acid 1 mg tabletIndication s:Microscopic Polyangiitis (HCC) Take 1 tablet (1 mg total) by mouth daily. 90 tablet 1 5 Active norethindrone 0.35 mg tablet Take 0.35 mg by mouth daily. 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 30 tablet 5 5 Active methotrexate, PF, 25 mg/mL PF injection 5 Active omega-3 fatty acids-fish oil 300-1,000 mg per capsule Take 2 g by mouth daily. Active zinc gluconate 50 mg tablet Take 50 mg by mouth daily with morning meal. Active magnesium 200 mg tablet Take 400 mg by mouth daily before morning meal. Active budesonide (Pulmicort) 0.5 mg/2 mL nebulizer solution Mix 1 ampule in sinus irrigation bottle and irrigate twice daily.(Or use sprayer) 120 mL 11 5 Active needle, disp, 27 gauge 27 gauge x 1/2 needleIndication s:Microscopic Polyangiitis (HCC) For methotrexate injections. 100 each 5 Active syringe, disposable, 1 mL syringeIndicatio ns:Microscopic Polyangiitis (HCC) For methotrexate injections. 100 each 5 Active methotrexate 25 mg/mL injectionIndicat ions:Microscopic Polyangiitis (HCC) Inject 0.8 mL (20 mg total) under the skin once a week, THEN 0.8 mL (20 mg total) once a week. 10 mL 1 5 027 Active Active Problems Problem Noted Date Diagnosed Date Anemia 03/30/2025 Deviation Nasal Septal 03/30/2025 Overview (03/30/2025): Seeing ENT. False Labor 03/30/2025 Saddle Nose 01/05/2025 Other Specified Abnormal Immunological Findings In Serum 09/23/2024 Encounters Date Type Department Care Team Description 09/10/2025 Clinical Communication Department of Otorhinolaryngology in [place], [place] [address] [place] [address] Zachariah Dow III, M.D. Med Question 08/24/2025 9:30 AM CDT Comprehensive Visit [facility] in [place], [place] [address] [place] [address] Zachariah Dow III, M.D. 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 Insurance Prior Authorization 07/18/2025 Refill Division of Rheumatology in [place], [place] [address] [place] [address] Rodo Yeh M.D. Med Refill 07/06/2025 Refill Department of Otorhinolaryngology in [place], [place] [address] [place] [address] Saida Perez M.D. Med Refill 07/05/2025 Orders Only [facility] in [place], [place] [address] [place] [address] Ashley South P.A.-C. Saddle Nose (Primary Dx) 07/02/2025 Patient Outreach Division of Rheumatology in [place], [place] [address] [place] [address] Carmelo Lawton Jr., RRosaN. Lab Monitoring (MTX) 07/01/2025 2:45 PM CDT Office Visit Division of Rheumatology in [place], [place] [address] [place] [address] Rodo Yeh M.D. Microscopic Polyangiitis (HCC) (Primary Dx) 07/01/2025 12:24 PM CDT - 07/01/2025 11:59 PM CDT Hospital Encounter Department of Laboratory Medicine and Pathology, [place], [place] [address] [place] [address] Rodo Yeh M.D. Microscopic Polyangiitis (HCC) Discharge Disposition: Home or Self Care 07/01/2025 12:24 PM CDT - 07/01/2025 11:59 PM CDT Hospital Encounter Department of Laboratory Medicine and Pathology, [facility] in [place], [place] [address] [place] [address] Rodo Yeh M.D. Microscopic Polyangiitis (HCC) Discharge Disposition: Home or Self Care from Last 3 Months Family History Medical History Relation Name Comments Lymphoma Maternal Grandfather Charles Nazario Skin cancer Maternal Grandfather Charles Nazario Relation Name Status Comments Maternal Grandfather Charles Nazario Alive Social History Tobacco Use Types Packs/Day Years Used Date Smoking Tobacco: Never Passive Smoke Exposure: Never Smokeless Tobacco: Never Alcohol Use Standard Drinks/Week Comments Yes 3 (1 standard drink = 0.6 oz pur e alcohol) [facility] Utilities Answer Date Recorded In the past 12 months has th e electric, gas, oil, or water company [...] your living situation today? I have a [facility] place to live 12/29/2024 Comments Unknown Sex and Gender Information Value Date Recorded Sex Assigned at Female 01/01/2025 8:04 AM STICKER HAND Legal Sex Female 7:11 AM STICKER HAND Gender Identity Female 01/01/2025 8:04 AM STICKER HAND Sexual Orientation Straight 01/01/2025 8: 04 AM STICKER HAND Last Filed Vital Signs Vital Sign Reading Time Taken Comments Blood Pressure 113/65 07/01/2025 2:36 PM CDT Pulse 71 07/01/2025 2:36 PM CDT Temperature 36 C (96.8 F) 07/01/2025 2:36 PM CDT Respiratory Rate - - Oxygen Saturation - - Inhaled Oxygen Concentration - - Weight 54 kg (119 lb 0.8 oz) 07/01/2025 2:36 PM CDT Height 162 cm (5' 3.78) 07/01/2025 2:36 PM CDT Body Mass Index 20.58 07/01/2025 2:36 PM CDT Plan of Treatment Upcoming Encounters Date Type Department Care Team (Latest Contact Info) Description 09/30/2025 7:30 AM CDT Appointment Department of Laboratory Medicine in [place], [place] [address] [place] [address] Rodo Yeh M.D. [address] [place] [phone] 11/23/2025 4:00 PM STICKER HAND Procedure visit [facility] in [place], [place] [address] [place] [phone] Zachariah Dow III, M.D. [address] [place] [phone] 11/24/2025 8:00 AM STICKER HAND Hospital Encounter Post Anesthesia Care Unit in [place], [place] [address] [place] [phone] Zachariah Dow III, M.D. [address] [place] [phone] 11/24/2025 8:00 AM STICKER HAND - 11/24/2025 3:27 PM STICKER HAND Surgery [facility] OR [address] [place] [phone] Zachariah Dow III, M.D. [address] [place] [phone] SEPTORHINOPLASTY 11/26/2025 8:30 AM STICKER HAND Procedure visit [facility] in [place], [place] [address] [place] [phone] Zachariah Dow III, M.D. [address] [place] [phone] 12/01/2025 8:00 AM STICKER HAND Procedure visit [facility] in [place], [place] [address] [place] [phone] Ashley South P.A.-C. [address] [place] [phone] Scheduled Procedures Name Priority Associated Diagnoses Date/Ti me SEPTORHINOPLASTY Obstruction Nasal Saddle Nose 11/24/2025 8:00 AM STICKER HAND HARVEST RIB GRAFT Obstruction Nasal Saddle Nose 11/24/2025 8:00 AM STICKER HAND INFERIOR TURBINATE OUTFRACTURE Obstruction Nasal Saddle Nose 11/24/2025 8:00 AM STICKER HAND Health Maintenance Due Date Last Done Comments Cervical/Vaginal Cancer Screening 1992 HIV Screening 1992 COVID-19 Vaccine (#1) 1997 Hepatitis B Vaccines (1 of 3 - 19+ 3-dose series) 2011 Pneumococcal vaccine (0-49 years) (1 of 2 - PCV) 2011 Zoster Vaccines (1 of 2) 2011 HPV Vaccines (1 - 3-dose SCDM series) 2019 Depression Screening (Annual PHQ-2) 12/02/2024 Influenza Vaccine (#1) 2025 9, 09/04/2018 DTaP,Tdap,and Td Vaccines (3 - Td or Tdap) 04/17/2033 04/17/2023, 05/15/2018 Hepatitis B Screening Discontinued 01/21/2025 IPV Vaccines Aged Out No longer eligi ble based on patient's age to complete this topic Goals Goal Patient Goal Type Associated Problems Recent Progress Patient-Stated? Author Autogenerat ed Goal Care Plan Autogenerated Problem No Devika Nugent Procedures Procedure Name Priority Date/Time Associated Diagnosis Comments DIPSTICK, U Routine 07/01/2025 12:45 PM CDT PH, U Routine 07/01/2025 12:45 PM CDT OSMOLALITY, U Routine 07/01/2025 12:45 PM CDT MICROSCOPIC AUTOMATED Routine 07/01/2025 12:45 PM CDT URINALYSIS WITH MICROSCOPIC Routine 07/01/2025 12:45 PM CDT Microscopic Polyangiitis (HCC) CYTOPLASMIC NEUTROPHIL ABS, S Routine 07/01/2025 12:41 PM CDT IMMUNOGLOBULINS (IGG, IGA, AND IGM), S Routine 07/01/2025 12:41 PM CDT Microscopic Polyangiitis (HCC) CD20, B CELLS, B Routine 07/01/2025 12:4 1 PM CDT Microscopic Polyangiitis (HCC) ANCA VASCULITIS PANEL, S Routine 025 12:41 PM CDT Microscopic Polyangiitis (HCC) CREATININE WITH EGFR, S/P Routine 07/01/2025 12:41 PM CDT Microscopic Polyangiitis (HCC) ALANINE AMINOTRANSFERASE (ALT), S/P Routine 07/01/2025 12:41 PM CDT Microscopic Polyangiitis (HCC) ASPARTATE AMINOTRANSFERASE (AST), S/P Routine 07/01/2025 12:41 PM CDT Microscopic Polyangiitis (HCC) C-REACTIVE PROTEIN (CRP), S/P Routine 07/01/2025 12:41 PM CDT Microscopic Polyangiitis (HCC) SEDIMENTATION RATE, B Routine 07/01/2025 12:41 PM CDT Microscopic Polyangiitis (HCC) CBC WITH DIFFERENTIAL, B Routine 025 12:41 PM CDT Microscopic Polyangiitis (HCC) HEPATITIS B SURFACE ANTIGEN Routine 01/21/2025 3:29 PM STICKER HAND Microscopic Polyangiitis (HCC) from Last 3 Months or Most Recently Relevant to Health Maintenance Results * Dipstick, Urine (07/01/2025 12:45 PM CDT) Hemoglobin, QL, U Negative Negative 07/01/2025 2:13 PM CDT DTL Leukocyte Esterase, U Negative Negative 07/01/2025 2:13 PM CDT DTL Nitrite, U Negative Negative 07/01/2025 2:13 PM CDT DTL Ketone, U Negative Negative mg/dL 07/01/2025 2:13 PM CDT DTL Glucose, U Negative Negative mg/dL 07/01/2025 2:13 PM CDT DTL Urine 07/01/2025 12:4 5 PM CDT 07/01/2025 1:14 PM CDT Rodo Yeh M.D. LAB URINE ORDERABLES Final R esult Performing Organization Address City/[facility]UST Co de Phone Number [facility] [place] [address] [place] [address], [facility] [address] [place] [address] * (ABNORMAL) Microscopic Automated (07/01/2025 12:45 PM CDT) Microscopy Abnormal 07/01/2025 2:13 PM CDT DTL RBC None Seen <3 /hpf 07/01/2025 2:13 PM CDT DTL WBC None Seen /hpf 07/01/2025 2:13 PM CDT DTL Comment: ----REFERENCE VALUE---- <4 (Males) <11 (Females) Squamous Epithelial Cells, U 1-3 /hpf 07/01/2025 2:13 PM CDT DTL Bacteria Present(A) 07/01/2025 2:13 PM CDT DTL Urine 07/01/2025 12:4 5 PM CDT 07/01/2025 1:14 PM CDT Rodo Yeh M.D. LAB URINE ORDERABLES Final R esult Performing Organization Address City/[facility] Co de Phone Number [facility] [place] [address] [place] [address], [facility] [address] [place] [address] * pH, Urine (07/01/2025 12:45 PM CDT) pH, U 5.7 4.5 - 8.0 07/01/2025 1:4 2 PM CDT DTL Urine 07/01/2025 12:4 5 PM CDT 07/01/2025 1:14 PM CDT us Rodo Yeh M.D. LAB URINE ORDERABLES Final R [facility] Performing Organization Address City/[facility]/ZIP Co de Phone Number [address] [address], [address] [address] * Osmolality, Urine (07/01/2025 12:45 PM CDT) Pathologist [facility] Osmolality, U 231 150 - 1150 mOsm/kg 07/01/2025 1:42 PM CDT DTL Urine 07/01/2025 12:4 5 PM CDT 07/01/2025 1:14 PM CDT us Rodo Yeh M.D. LAB URINE ORDERABLES Final R [facility] Performing Organization Address [facility]UST Co de Phone Number [facility] [place] [address] [place] [address], [address] [address] * Urinalysis, with Microscopic: Urine, Voided (07/01/2025 12:45 PM CDT) Pathologist [facility] Source Urine, Urine, Voided 07/01/2025 1:14 PM CDT DTL Color, U Yellow 07/01/2025 1:14 PM CDT DTL Clarity, U Clear 07/01/2025 1:14 PM CDT DTL Protein, U <4 <26 mg/dL 07/01/2025 2:10 PM CDT DTL Protein/Osmola lity <0.17 <0.42 ratio 07/01/2025 2:10 PM CDT DTL Predicted 24 HR Protein, U <136 <229 mg/24 h 07/01/2025 2:10 PM CDT DTL Predicted Range <551 mg/24 h 07/01/2025 2:10 PM CDT DTL Urine (Urine, Voided) 07/01/2025 12:45 PM CDT 07/01/2025 1:14 PM CDT Rodo Yeh M.D. LAB URINE ORDERABLES Final R esult Performing Organization Address [facility] Co de Phone Number [facility] [place] [address] [place] [address], [place] DTL [facility] [address] [place] [address] * CD20 on B Cells (07/01/2025 12:41 PM CDT) CD45 Absolute 1.75 0.99 - 3.15 thou/mcL 07/02/2025 8:26 AM CDT SDSC %CD19 B-Cells 11 4.6 - 22.1 % 07/02/2025 8:26 AM CDT SDSC %CD20 B-Cells 11 5.0 - 22.3 % 07/02/2025 8:26 AM CDT SDSC CD19 Absolute 197 56.6 - 417.4 cells/mcL 07/02/2025 8:26 AM CDT SDSC CD20 Absolute 197 74.4 - 441.1 cells/mcL 07/02/2025 8:26 AM CDT SDSC Comment: ----ADDITIONAL INFORMATION---- Reference values implemented March 02, 2009. This test was developed using an analyte specific reagent. Its performance characteristics were determined by [facility] in a manner consistent with CLIA requirements. This test has not been cleared or approved by the U.S. Food and Drug Administration. Blood (Blood, Venous) 07/01/2025 12:41 PM CDT 07/01/2025 4:04 PM CDT us Rodo Yeh M.D. LAB BLOOD ADD-ON Final Resul t Performing Organization Address [facility]/ZIP Co de Phone Number [facility] [address] [place] [address] [facility] [address] [place] [address] [place] [address] * (ABNORMAL) ANCA (Antineutrophil Cytoplasmic Antibodies) Vasculitis Panel (07/01/2025 12:41 PM CDT) Myeloperoxidase Ab, S 1.2(H) <0.4 (Negative ) U 07/01/2025 5:59 PM CDT [facility] Comment:Interpretation: Posi tive (>=1.0) Proteinase 3 Ab (PR3), S <0.2 <0.4 (Negative ) U 07/01/2025 5:59 PM CDT [facility] Blood (Blood, Venous) 07/01/2025 12:41 PM CDT 07/01/2025 5:10 PM CDT Rodo Yeh M.D. LAB BLOOD ADD-ON Final Resul t Performing Organization Address [facility]/[place] Co de Phone Number [facility] [address] [place] [address] [facility] [address] [place] [address] * (ABNORMAL) Cytoplasmic Neutrophil Antibodies (07/01/2025 12:41 PM CDT) c-ANCA Negative Negative 07/02/2025 2:12 PM CDT [facility] Perinuclear (P-ANCA) Positive(A) Negative 07/02/2025 2:12 PM CDT [facility] Comment: Positive for MPO antibodies by solid-phase immunoassay and pANCA pattern by immunofluorescence. Consistent with ANCA-associated vasculitis, if compatible clinical features are present. ----ADDITIONAL INFORMATION---- This test was developed and its performance characteristics determined by [facility] in a manner consistent with CLIA requirements. This test has not been cleared or approved by the U.S. Food and Drug Administration. Blood 07/01/2025 12:4 1 PM CDT 07/01/2025 6:39 PM CDT Rodo Yeh M.D. LAB BLOOD ADD-ON Final Resul t Performing Organization Address [facility]/[place] Co de Phone Number [facility] [address] [place] [address] [facility] [address] [place] [address] [place] [address] * Sedimentation Rate (07/01/2025 12:41 PM CDT) Sedimentation Rate, B 6 2 - 20 mm/h 07/01/2025 2:20 PM CDT DTL Blood (Blood, Venous) 07/01/2025 12:41 PM CDT 07/01/2025 1:06 PM CDT us Rodo Yeh M.D. LAB BLOOD ADD-ON Final Resul t [facility] [address] [place] [address], [facility] DTL [facility] [address] [place] [address] * (ABNORMAL) CBC with Differential, Blood (07/01/2025 12:41 PM CDT) Hemoglobin 12.3 11.6 - 15.0 g/dL 07/01/2025 1:15 PM CDT DTL Hematocrit 37.8 35.5 - 44.9 % 07/01/2025 1:15 PM CDT DTL Erythrocytes 3.71(L) 3.92 - 5.13 x10(12)/L 07/01/2025 1:15 PM CDT DTL MCV 101.9(H) 78.2 - 97.9 fL 07/01/2025 1:15 PM CDT DTL RBC Distrib Width 14.4 12.2 - 16.1 % 07/01/2025 1:15 PM CDT DTL Platelet Count 239 157 - 371 x10(9)/L 07/01/2025 1:15 PM CDT DTL Leukocytes 5.7 3.4 - 9.6 x10(9)/L 07/01/2025 1:15 PM CDT DTL Neutrophils 3.59 1.56 - 6.45 x10(9)/L 07/01/2025 1:15 PM CDT [facility] Lymphocytes 1.53 0.95 - 3.07 x10(9)/L 07/01/2025 1:15 PM CDT DTL Monocytes 0.49 0.26 - 0.81 x10(9)/L 07/01/2025 1:15 PM CDT DTL Eosinophils 0.06 0.03 - 0.48 x10(9)/L 07/01/2025 1:15 PM CDT DTL Basophils 0.04 0.01 - 0.08 x10(9)/L 07/01/2025 1:15 PM CDT DTL Blood (Blood, Venous) 07/01/2025 12:41 PM CDT 07/01/2025 1:06 PM CDT Rodo Yeh M.D. LAB BLOOD ADD-ON Final Resul t Performing Organization Address City/[facility]/ZIP Co de Phone Number [facility] [place] [address] [place] [address], [facility] DTL [facility] [address] [place] [address] [facility] [address] [place] [address] * Immunoglobulins (IgG, IgA, and IgM) (07/01/2025 12:41 PM CDT) Immunoglobulin A (IgA), S 203 61 - 356 mg/dL 07/01/2025 6:57 PM CDT [facility] Immunoglobulin M (IgM), S 43 37 - 286 mg/dL 07/01/2025 6:56 PM CDT [facility] Immunoglobulin G (IgG), S 1000 767 - 1590 mg/dL 07/01/2025 6:57 PM CDT [facility] Blood (Blood, Venous) 07/01/2025 12:41 PM CDT 07/01/2025 5:35 PM CDT Rodo Yeh M.D. LAB BLOOD ADD-ON Final Resul t [facility] [address] [place] [address] [facility] [address] [place] [place] [address] * CRP (C-Reactive Protein) (07/01/2025 12:41 PM CDT) C-Reactive Protein (CRP), S <3.0 <5.0 mg/L 07/01/2025 1:36 PM CDT DTL Blood (Blood, Venous) 07/01/2025 12:41 PM CDT 07/01/2025 1:02 PM CDT us Rodo Yeh M.D. LAB BLOOD ADD-ON Final Resul t [facility] [place] [address] [place] [address] * ALT (Alanine Aminotransferase) (07/01/2025 12:41 PM CDT) Alanine Aminotransferase (ALT), S 24 7 - 45 U/L 07/01/2025 1:36 PM CDT DTL Blood (Blood, Venous) 07/01/2025 12:41 PM CDT 07/01/2025 1:02 PM CDT us Rodo Yeh M.D. LAB BLOOD ADD-ON Final Resul t Performing Organization Address City/[facility]/ZIP Co de Phone Number [facility] [place] [address] [place], [place] [address] [place] [address] 200 [place] [address] * AST (Aspartate Aminotransferase) (07/01/2025 12:41 PM CDT) Aspartate Aminotransferase (AST), S 16 8 - 43 U/L 07/01/2025 1:36 PM CDT DTL Blood (Blood, Venous) 07/01/2025 12:41 PM CDT 07/01/2025 1:02 PM CDT us Rodo Yeh M.D. LAB BLOOD ADD-ON Final Resul t [facility] [place] [address] [place] [address] * Creatinine with Estimated GFR (07/01/2025 12:41 PM CDT) Creatinine 1.02 0.59 - 1.04 mg/dL 07/01/2025 1:36 PM CDT DTL Estimated GFR (eGFR) 74 >=60 mL/min/BSA 07/01/2025 1:36 PM CDT DTL Comment: Estimated GFR calculated using the 2020 CKD_EPI creatinine equation. Blood (Blood, Venous) 07/01/2025 12:41 PM CDT 07/01/2025 1:02 PM CDT Rodo Yeh M.D. LAB BLOOD ADD-ON Final Resul t [facility] [place] [address] [place] [address], [facility] [address] [place] [address] * Hepatitis B Surface Antigen (01/21/2025 3:29 PM STICKER HAND) Pathologist [facility] HBs Antigen, S Negative Negative 01/21/2025 8:59 PM STICKER HAND [facility] Blood (Blood, Venous) 01/21/2025 3:29 PM STICKER HAND 01/21/2025 8:09 PM STICKER HAND Rodo Yeh M.D. LAB MICROBIOLOGY - BLOOD ORD ERABLES Final Result [facility] [address] [place] [address] [facility] [address] [place] [address] from Last 3 Months or Most Recently Relevant to Health Maintenance Additional Health Concerns Active Problems Noted Date Diagnosed Date Autogenerated Problem 09/22/2025 Infection Onset Date Last Indicated Protective Environment 01/22/2025 Insurance [facility] [place] [address] Care Teams Accounting Manager Cpa Relationship Specialty Start Date End Date None Reported, Pcp PCP - General Family Medicine 02/11/25
--- OUTSIDE RECORDS SUMMARY | 2025-09-28 13:02 | XMS_ITS | Encounter Summary ---
Author Organization [facility] Address [address] [place] [address] Care Team Providers Care Turf Sales Person Name Role Phone None Reported, Pcp Primary Care Provider Unavail able Reason for Visit * Reason Onset Date Comments Insurance Prior Authorization 07/26/2025 Encounter Details Date Type Department Care Team (Latest Contact Info) Description 07/26/2025 Clinical Communication Department of Otorhinolaryngology in [place], [place] [address] [place] [phone] Saida Perez M.D. [address] [place] [phone] Insurance Prior Authorization Social History Tobacco Use Types Packs/Day Years Used Date Smoking Tobacco: Never Passive Smoke Exposure: Never Smokeless Tobacco: Never Alcohol Use Standard Drinks/Week Comments Yes 3 (1 standard drink = 0.6 oz pur e alcohol) [facility] Utilities Answer Date Recorded In the past 12 months has e [employer], gas, oil, or water [employer] threatened to shut off services in your [...] your living situation today? I have a [facility] place to live 12/29/2024 Comments Unknown Sex and Gender Information Value Date Recorded Sex Assigned at Female 01/01/2025 8:04 AM PUTTY REMOVER Legal Sex Female 7:11 AM PUTTY REMOVER Gender Identity Female 01/01/2025 8:04 AM PUTTY REMOVER Sexual Orientation Straight 01/01/2025 8: 04 AM PUTTY REMOVER documented as of this encounter Miscellaneous Notes * Telephone Encounter - Tania Canales - 09/10/2025 10:01 AM CDT Patient calls in today stating that her insurance company [email or web address] said that [facility] cancelled her prior auth for surgery on Sep 06, 2025. Patient is calling to fins out what is going on. Prior Auth should be submitted. She wants this expedited and her surgery done this year still. * Telephone Encounter - Tania Canales - 07/26/2025 10:38 AM CDT Patient called in today to check on the status of her insurance prior authorization. Patient said she will call her insurance company one more time but she hadn't heard anything so wanted to speak with Devika. Please reach out to the patient. documented in this encounter Plan of Treatment Upcoming Encounters Date Type Department Care Team (Latest Contact Info) Description 09/30/2025 7:30 AM CDT Appointment Department of Laboratory Medicine in [place], [place] [address] [place] [phone] Rodo Yeh M.D. [address] [place] [phone] 11/23/2025 4:00 PM PUTTY REMOVER [facility] in [place], [place] [address] [place] [phone] Zcahariah Dow III, M.D. [address] [place] [phone] 11/24/2025 8:00 AM PUTTY REMOVER Hospital Encounter Post Anesthesia Care Unit in [place], [place] [address] [place] [phone] Zachariah Dow III, M.D. [address] [place] [phone] 11/24/2025 8:00 AM PUTTY REMOVER - 11/24/2025 3:27 PM PUTTY REMOVER Surgery [facility] [address] [place] [phone] Zachariah Dow III, M.D. [address] [place] [phone] SEPTORHINOPLASTY 11/26/2025 8:30 AM PUTTY REMOVER Procedure visit [facility] in [place], [place] [address] [place] [phone] Zachariah Dow III, M.D. [address] [place] [phone] 12/01/2025 8:00 AM PUTTY REMOVER Procedure visit [facility] in [place], [place] [address] [place] [phone] Ashley South P.A.-C. [address] [place] [phone] Scheduled Procedures Name Priority Associated Diagnoses Date/Ti me SEPTORHINOPLASTY Obstruction Nasal Saddle Nose 11/24/2025 8:00 AM PUTTY REMOVER HARVEST RIB GRAFT Obstruction Nasal Saddle Nose 11/24/2025 8:00 AM PUTTY REMOVER INFERIOR TURBINATE OUTFRACTURE Obstruction Nasal Saddle Nose 11/24/2025 8:00 AM PUTTY REMOVER documented as of this encounter Visit Diagnoses Not on filedocumented in this encounter Additional Health Concerns Infection Onset Date Last Indicated Resolved Time Protective Environment 01/22/2025 01/22/2025 documented as of this encounter Care Teams Turf Sales Person Relationship Specialty Start Date End Date None Reported, Pcp PCP - General Family Medicine 02/11/25 documented as of this encounter
--- OUTSIDE RECORDS SUMMARY | 2025-09-28 13:02 | XMS_ITS ---
Author Organization [facility] Address [address] [place] [address] Care Team Providers Care Radiological Health Specialist Name Role Phone None Reported, Pcp Primary Care Provider Unavail able Rheumatology Monitoring Program - January 2025 Status:Enrolled (Active) Start date:01/22/2025 Enrollment date:01/22/2025 Current support & services provided:Medication Monitoring Overview John COLIN or Saturday AM Q3M Continued Care and Services Coordination
[2025-09-28 14:07] LABS: Albumin* 4.5 g/dL (3.3-5.0)
[2025-09-28 14:08] LABS: Chloride* 105 mmol/L (96-114); Potassium* 3.9 mmol/L (3.6-5.1); Sodium* 136 mmol/L (135-149)
[2025-09-28 14:10] LABS: Blood Urea Nitrogen* 19 mg/dL (5-24); Creatinine* 1.0 mg/dL (0.5-1.5); Est. Creatinine Clearance* 68.76; Estimated Glomerular Filt Rate 76 ml/min
[2025-09-28 14:11] LABS: Alanine Aminotransferase* 33 U/L (4-35); Alkaline Phosphatase* 40 U/L (40-150); Anion Gap 8 mEq/L (7-15); Aspartate Amino Transferase* 32 U/L (12-35); Bilirubin Direct* 0.2 mg/dL (0.0-0.5); Bilirubin Total* 0.7 mg/dL (0.1-1.5); Calcium* 9.1 mg/dL (8.4-10.6); Carbon Dioxide* 23 mmol/L (20-32); Glucose* 123 mg/dL (60-115); Total Protein* 7.2 g/dL (6.0-8.3)
[2025-09-28 14:20] LABS: Hematocrit* 37.9 % (33.0-51.0); Hemoglobin* 12.6 gm/dL (12.0-16.0); Immature Granulocytes Pct Auto 0.1 %; Mean Corpuscular HGB Conc 33 gm/dL (32-36); Mean Corpuscular Hemoglobin 34 pg (26-34); Mean Corpuscular Volume 102 fL (80-100); RDW Coefficient of Variation % 13.8 % (11.5-15.5); Red Blood Count* 3.73 m/uL (4.00-5.20); White Blood Count* 12.45 K/uL (4.50-11.00)
[2025-09-28 14:23] LABS: Immature Granulocytes Abs Auto 0.00 K/uL (0.00-0.30); Lymphocytes Absolute Auto 0.90 K/uL (0.90-2.90); Slide Review Reflex No
[2025-09-28 14:30] LABS: Appearance Urine Cloudy (Clear)
[2025-09-28 15:10] LABS: Ur HCG Qualitative* Negative (Negative)
--- NOTE | 2025-09-28 16:43 | CRLHL7_ITS ---
For Patients: As a result of the Century Cures Act, medical imaging exams and procedure reports are released immediately into your electronic medical record. You may view this report before your referring provider. If you have questions, please contact your health care provider. INDICATION: Recheck for appy TECHNIQUE: CT abdomen and pelvis acquired with 58 cc Isovue 317 IV contrast. COMPARISON: CT abdomen and pelvis September 28, 2025 FINDINGS: Lower chest: Unremarkable. Liver: Normal in size and attenuation. No suspicious masses. Gallbladder and bile ducts: No stones or inflammation. No biliary dilatation. Pancreas: No mass or inflammation. Spleen: Normal in size. No masses. Adrenal glands: No suspicious mass. Kidneys: Bilateral kidneys are normal in size with symmetric enhancement. No nephrolithiasis or hydronephrosis. GI tract: No bowel obstruction. Redemonstration of few appendicolith, with a dilatation of appendix at the base measuring 13 millimeter, grossly similar to previous CT. There is no adjacent inflammatory changes. No localized bowel wall thickening or inflammation. Moderate fecal retention. Vasculature: Abdominal aorta is normal in caliber. Lymph nodes: No lymphadenopathy. Peritoneum/Abdominal Wall: No free air or significant free fluid. Pelvis: Unremarkable. Bones: Unremarkable for age. IMPRESSION: Redemonstration of dilatation of appendix at the base with few appendicoliths. No adjacent inflammatory changes to suspect imaging findings of acute appendicitis. Please note that all CT scans at this facility use dose modulation, iterative reconstruction, and/or weight-based dosing when appropriate to reduce radiation dose to as low as reasonably achievable. Dictated by Jyotsna Camejo MD @ 09/28/2025 5:35:22 PM (Electronically Signed)
[2025-09-28] MEDS: MORPHINE 4 MG/ML INJ IVP (17:06)
--- NOTE | 2025-09-28 19:08 | PM.GSHP ---
History of Present Illness History of Present Illness Date Seen: 09/28/25 Chief complaint: Abdominal pain Narrative: Gretchen Abdi is a 35 year old female presented to emergency room with right-sided abdominal pain. Patient states the pain started at 9:00 a.m. in the morning. Patient was at work. The pain was gradually increasing and was more bothersome. Patient went home from work and was not able to get comfortable. Patient then drove herself to the emergency room. While driving, her pain was worse when going over the road bumps. The pain is worse with movement. The pain is described as sharp and dull. Patient passed gas a couple times today. She had a loose stool today. Denies fevers. Patient has a history of ANCA vasculitis. She is on methotrexate injections weekly. Her last injection was on Saturday. She is also using nasal steroid inhaler b.i.d.. She states that after extensive workup only nose was found to be affected by vasculitis. Are personally reviewed with patient's workup in the emergency room. Patient was found to have elevated WBC of 12. An abdominal CT was obtained first without contrast and then repeated with iv contrast. Patient's appendix was visualized and she had multiple appendicoliths. Her appendix was dilated but no significant periappendiceal inflammation was noted. Review of Systems Narrative: General: no fevers HENT: no problems swallowing CV: no shortness of breath Resp: no cough GI: No nausea, vomiting, abdominal pain : no dysuria, no increased urinary frequency, no hematuria Skin: no new rashes Musculoskeletal: no back pain Neuro: no muscle weakness Psyche: no depression, no anxiety PFSH PFSH Medical History Low grade squamous intraepith lesion on cytologic smear vagina (lgsil) ?R87.622 - Low grade squamous intraepithelial lesion on cytologic smear of vagina (LGSIL) (ICD-10) Surgical History Vaginal delivery ?O80 - Encounter for full-term uncomplicated delivery (ICD-10) H/O wisdom tooth extraction (2012) ?K08.409 - Partial loss of teeth, unspecified cause, unspecified class (ICD-10) Family History Maternal Grandfather Skin cancer Liver cancer, Onset Age: 84 Paternal Grandmother No problems noted. 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 Partner: Lance, [employer] Finisher Freddie; Lives with: Amarjit Lucas Pets: Cat Abuse: Denies past/present Special Diet: Denies Ok with a blood transfusion: yes Culture or taoist beliefs: denies RISK FACTORS Exercise Times/wk: Cardio and Strength Training, gym daily Depression/Anxiety: No hx Seat Belt Use: Routinely Smoking: Denies past/present Alcohol/day: Denies while ; Occasional/social Caffeine: 1 cup of coffee Drug Use: Denies past/present Chicken Pox: Yes as a child MRSA: Denies What is your current living situation?: I presently have a place to live Problems where you live: no known problems In the past 12 months, utilities in danger of being shut off: no In past 12 months, lack of transportation kept you from medical appts, meetings, work, or getting things needed for daily living: no In the past 12 mos, have been you worried that your food would run out before you had money to buy more?: never true In the past 12 mos, the food you bought just didn't last and you didn't have money to buy more?: never true Smoking Status: Never smoker How often does anyone, including family, friends and others, physically hurt you: never How often does anyone, including family, friends and others, insult or talk down to you: never How often does anyone, including family, friends and others, threaten you with harm: never How often does anyone, including family, friends and others, scream or curse at you: never Meds Home Medications and Allergies Home Medications ?Medication ?Instructions ?Recorded ?Confirmed ?Type norethindrone acetate 1 mg-ethinyl 1 tab PO QDAY #63 tabs 12/24/24 09/28/25 Rx estradiol 20 mcg tablet (Junel) budesonide 0.5 mg/2 mL suspension 0.5 mg inhalation BID 02/17/25 09/28/25 History for nebulization folic acid 1 mg tablet 1 mg PO QDAY 02/17/25 09/28/25 History methotrexate (PF) 25 mg/0.4 mL 25 mg subcut QWEEK 02/17/25 09/28/25 History subcutaneous auto-injector mupirocin 2 % topical ointment 1 applic topical BID 02/17/25 09/28/25 History Allergies Allergy/AdvReac Type Severity Reaction Status Date / Time No Known Drug Allergies Allergy Verified 09/28/25 17:08 Exam Narrative: Exam Narrative: General appearance: Alert, cooperative, and in no distress Pulmonary: Chest symmetric, lungs clear bilaterally Cardiovascular Heart: Regular rate and rhythm, S1, S2, no murmurs/rubs/gallops Gastrointestinal Abdominal: soft, not distended, tender to percussion in the right lower quadrant, tender to palpation in the right lower quadrant with rebound tenderness. Skin: Normal skin color, texture, and turgor. No rashes or lesions. Psychiatric: Alert, cooperative, normal affect. Const: Vital Signs, click to edit/add: Vital Signs - 24 hr 09/28/25 12:34 09/28/25 14:02 09/28/25 14:03 Temperature 98.3 F Pulse Rate 63 72 Pulse Rate [Right Pulse Oximeter] 67 Respiratory Rate 18 Blood Pressure 107/71 Blood Pressure [Ri ght Upper Arm] 115/71 Pulse Oximetry 100 100 100 Oxygen Delivery Me thod Room Air 09/28/25 14:15 Temperature Pulse Rate 79 Pulse Rate [Right Pulse Oximeter] Respiratory Rate Blood Pressure Blood Pressure [Ri ght Upper Arm] Pulse Oximetry 99 Oxygen Delivery Me thod Progress Note:A&P Assessment and plan (1) Acute appendicitis: Status: Acute Plan 35-year-old female on methotrexate for ANCA vasculitis presents with right-sided abdominal pain that is suspicious for acute appendicitis. I discussed with the patient and her her laboratory and imaging findings. Patient's abdominal pain is suspicious for acute appendicitis although the CT scan only shows dilated appendix with no significant periappendiceal inflammation. I suspect that her response to inflammation might be masked by her immunosuppression. I recommended to proceed with laparoscopic appendectomy. The procedure was discussed in detail. The risks associated procedure including infection, bleeding, injury to intra-abdominal organs, and the need for additional procedures were all discussed with the patient, and she agreed to proceed. Postoperatively we will have patient hold methotrexate for 3 weeks.
[2025-09-28] MEDS: BUPIVACAINE 0.25% 30 ML INJECTION (19:51)
[2025-09-28] MEDS: LIDOCAINE 1%-EPI 1:100,000 20 ML INFILTRATI (19:51)
--- NOTE | 2025-09-28 20:25 | P.GSOP_ITS ---
Operative Note Date of procedure: 09/28/25 Pre-op diagnosis: 1. Acute appendicitis. Post-op diagnosis: Same Type of Procedure: 1. Laparoscopic appendectomy. Indications: 35-year-old female presented to the emergency room with right-sided abdominal pain that started today in the morning. The pain was getting progressively worse and was worse with movement. Patient presented to the emergency room. She was found to have elevated WBC. An abdominal CT was obtained that showed dilated appendix with appendicoliths but no clear periappendiceal inflammation. Patient is on methotrexate for ANCA vasculitis. On clinical exam patient had tenderness to palpation in the right lower quadrant with rebound tenderness. Given patient's clinical history and her immunosuppressed status, acute appendicitis was suspected, and laparoscopic appendectomy was recommended. The procedure was discussed in detail. The risks associated procedure including infection, bleeding, injury to intra-abdominal organs, and the need for additional procedures were all discussed with the patient, and she agreed to proceed. Procedure Description: After discussing the risks and benefits of the procedure, the patient signed informed consent.? The operative site was marked and the patient was brought to the operating room and placed on the operating table in supine position.? Care was taken to pad the patient's pressure points.?? The patient was then intubated by anesthesia.?? The operative site was then prepped and draped in the usual sterile fashion.? A time-out was then performed. A 5-mm laparoscopy port was placed in the left upper quadrant guided by a 5-mm laparoscope placed into a translucent trochar. Passage through the layers of the abdominal wall was visualized with the laparoscope. A pneumoperitoneum was established. A 30-degree 5-mm laparoscope was advanced into the abdomen. The abdomen was briefly surveyed, and there was no evidence of diffuse peritonitis. A 12-mm port and a 5-mm port were placed suprapubically, respectively, under direct visualization by laparoscope. Left upper quadrant entrance port was then examined intraabdominally by placing the camera through the left lower quadrant port. Small amount of bleeding was noted from the left lobe of the liver from the port entrance site. This was not actively bleeding. No other intra- abdominal organ injury was seen. The patient was placed in Trendelenburg position, allowing the abdominal contents to shift cephalad. The small bowel was moved toward the midline in the abdomen and this allowed for identification of the appendix. The distal and mid appendix was dilated and inflamed. The base of the appendix was normal in appearance. The appendix was grasped and dissected from the peritoneum using Harmonic scalpel. A [place] clamp was passed between the appendiceal mesentery and the base of the appendix, creating a window. Appendiceal artery and vein were clearly identified. They were circumferentially dissected and clipped with two 5 mm clips on the patient's side and a single clip on the specimen side. The appendiceal artery was then divided between the clips with Harmonic scalpel. A vascular load Endo-BEATRICE stapler was advanced through the 12-mm port into the abdomen and appendix was stapled off at its base. The appendix was then placed in an endoscopic retrieval bag and extracted from the abdomen through the 12-mm port. The abdomen was surveyed for hemostasis. And no bleeding was seen. The l eft lobe of the liver was again examined and no active bleeding was seen. The 12-mm port was withdrawn and the fascial defect was closed with a [id number] 0-0 Vicryl stitch. The 5-mm port was removed under direct visualization. The left upper quadrant port was used to evacuate the pneumoperitoneum and then withdrawn. The skin incisions were closed with 4-0 monocryl. Steri-Strips were applied over the incisions. All counts were correct at the end of the case. The patient tolerated this procedure well and was transferred to PACU in stable condition. Findings: Inflamed appendix with no evidence of perforation and no periappendiceal abscess. Anesthesia: GETA Surgeon: Mio Deutsch MD Estimated blood loss (mL): 5 Specimen: Appendix Condition: stable Disposition: PACU
--- NOTE | 2025-09-28 20:40 | P.ANES_ITS ---
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
--- NOTE | 2025-09-28 20:40 | W.ANESCHARGE ---
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
[2025-09-28] MEDS: LACTATED RINGERS 1000 ML 1,000 ML 35 ML IV ×2 (20:50→20:54)
[2025-09-28] MEDS: HYDROCODONE-ACETAMIN 5-325 MG 1 TAB PO (22:14)
[2025-09-29 01:56] VITALS: BP 105/60; PULSE 62; RESP 18; TEMP 36.9; O2SAT 98
[2025-09-29] MEDS: LACTATED RINGERS 1000 ML 1,000 ML 100 ML IV (02:03)
[2025-09-29 02:56] VITALS: BP 105/68; PULSE 68; RESP 16; TEMP 37; O2SAT 97
[2025-09-29 03:49] VITALS: BP 115/64; PULSE 64; RESP 18
[2025-09-29] MEDS: HYDROCODONE-ACETAMIN 5-325 MG 1 TAB PO (04:51)
[2025-09-29 07:30] VITALS: RESP 16; O2SAT 99
[2025-09-29 07:51] VITALS: BP 101/59; PULSE 60; RESP 16; TEMP 36.7; O2SAT 99
[2025-09-29] MEDS: FOLIC ACID 1 MG TABLET PO (08:23)
--- NOTE | 2025-09-29 09:39 | PC.NURSE ---
Pt is doing well this morning. VSS. Pain is well controlled with PRN medications and rest. Pt is ambulating independently, voiding without problems and tolerating a regular diet. Surgical dressings remain clean, dry and intact. Pt belongings and discharge instructions signed, no further questions or concerns at this time. Pt discharged home at 0935 via .
--- NOTE | 2025-09-29 17:16 | P.DS_ITS ---
DS: Providers Provider Date Seen: 09/28/25 Primary care physician: Pratibha Banuelos MD Attending Physician on discharge: Mio Deutsch MD DS: Diagnosis Discharge Diagnosis (1) Acute appendicitis: Status: Acute (2) S/P laparoscopic appendectomy: Status: Acute DS: Summary Hospital Course Hospital Course: Patient was admitted overnight after she underwent laparoscopic appendectomy. Patient did well postoperatively. Time Spent with Patient Time attestation: Total time spent providing and/or coordinating discharge services: Exam Narrative: Exam Narrative: Patient was not personally examined on the day of discharge. Const: Vital Signs, click to edit/add: Vital Signs - 24 hr 09/28/25 20:30 09/28/25 20:35 09/28/25 20:40 Temperature 100.4 F H Pulse Rate 81 79 75 Pulse Rate [Pulse Oximeter] Respiratory Rate 18 16 16 Blood Pressure 128/74 128/70 130/74 Blood Pressure [Ri ght Arm] Pulse Oximetry 95 95 96 Oxygen Delivery Me thod Room Air Room Air Room Air 09/28/25 20:45 09/28/25 20:50 09/28/25 20:55 Temperature 100.0 F H Pulse Rate 70 66 70 Pulse Rate [Pulse Oximeter] Respiratory Rate 16 16 16 Blood Pressure 128/82 122/69 125/74 Blood Pressure [Ri ght Arm] Pulse Oximetry 97 98 97 Oxygen Delivery Me thod Room Air Room Air Room Air 09/28/25 21:11 09/28/25 21:13 09/28/25 21:26 Temperature 98.7 F 98.7 F 98.8 F Pulse Rate Pulse Rate [Pulse Oximeter] 77 77 71 Respiratory Rate 16 16 16 Blood Pressure Blood Pressure [Ri ght Arm] 126/73 126/73 122/76 Pulse Oximetry 97 97 Oxygen Delivery Me thod Room Air Room Air Room Air 09/28/25 21:41 09/28/25 21:56 09/28/25 22:26 Temperature 98.7 F 98.6 F 98.2 F Pulse Rate Pulse Rate [Pulse Oximeter] 71 68 66 Respiratory Rate 16 16 16 Blood Pressure Blood Pressure [Ri ght Arm] 124/70 118/70 122/69 Pulse Oximetry 97 97 98 Oxygen Delivery Me thod Room Air Room Air Room Air 09/28/25 22:56 09/28/25 23:00 09/28/25 23:00 Temperature 98.6 F Pulse Rate Pulse Rate [Pulse Oximeter] 65 65 Respiratory Rate 16 16 16 Blood Pressure Blood Pressure [Ri ght Arm] 123/70 Pulse Oximetry 97 97 Oxygen Delivery Me thod Room Air Room Air 09/28/25 23:56 09/29/25 01:56 09/29/25 02:56 Temperature 98.9 F 98.4 F 98.6 F Pulse Rate Pulse Rate [Pulse Oximeter] 60 62 68 Respiratory Rate 16 18 16 Blood Pressure Blood Pressure [Ri ght Arm] 112/58 L 105/60 105/68 Pulse Oximetry 98 98 97 Oxygen Delivery Me thod Room Air Room Air 09/29/25 03:49 09/29/25 07:30 09/29/25 07:51 Temperature 98.1 F Pulse Rate Pulse Rate [Pulse Oximeter] 64 60 Respiratory Rate 18 16 16 Blood Pressure Blood Pressure [Ri ght Arm] 115/64 101/59 L Pulse Oximetry 99 99 Oxygen Delivery Me thod Room Air Room Air Room Air DS: Data Data Completed and Pending Completed studies during hospitalization: Procedures Delivery of Products of Conception, External Approach (06/25/23) Labs on day of discharge: Preliminary micro results at discharge 09/28/25 14:18 Urine Culture - Preliminary Urine,Clean Catch < 10,000 COL/ML MIXED GRAM POSITIVE MICHAEL ISOLATED NO FURTHER WORKUP Discharge Plan Discharge Disposition: Home w/ Parent or Adult Discharging Surgeon: Mio Deutsch Follow-Up Appointment: [facility] 2 weeks Prescriptions: New hydrocodone-acetaminophen 5-325 mg tablet 1 tab PO Q6H PRN (Reason: pain) Qty: 25 0RF No Action methotrexate (PF) 25 mg/0.4 mL auto-injector 25 mg subcut QWEEK folic acid 1 mg tablet 1 mg PO QDAY budesonide 0.5 mg/2 mL suspension for nebulization 0.5 mg inhalation BID mupirocin 2 % ointment 1 applic topical BID norethindrone ac-eth estradiol [12/21 (21)] 1-20 mg-mcg tablet 1 tab PO QDAY Qty: 63 3RF Activity Level: No strenuous activity Activity Detail: No strenuous activity or lifting more than 15-20 lbs for 4-6 weeks. Take laxative such as MiraLax daily for the first 7-10 days after surgery to prevent constipation. Take the outer dressing off tomorrow. Leave Steri-Strips on for the next 7-10 days. Okay to shower in 24 hours after surgery. Avoid swimming or submerging incision under water (except for showering) for 2 weeks. Discharge Diet: Regular Patient Instructions: Hydrocodone/Acetaminophen (By mouth), General Anesthesia (DC), NH+C Post-Operative Instructions: Appendectomy Additional Instructions: HOLD Methotrexate for 3 weeks post op. Patient should be off work for the rest of the week and if she is feeling ok, can resume work next 10/04/25. Forms: Work/School Release Follow-up: Mio Deutsch MD [Staff Physician, General Surgery] - 10/13/25 2:30 pm Referral Note: [facility] for hospital follow-up. Discharge Orders: Discharge Order (Routine); Ordered 09/29/25 Ordered By: Mio Deutsch
== END 2025-09-29 09:35 | disposition home or self-care (01) ==
LOC: ED 18:33 → OR 19:30 → MEDSURG 21:46
PROVIDERS: Emergency Provider Family Medicine; PCP Family Medicine; Visit Provider Surgery
PROC: 0DTJ4ZZ Resection of Appendix, Percutaneous Endoscopic Approach (ICD-10-PCS; CPT 44970; principal; 2025-09-28 19:00)
DX: K35.80 Unspecified acute appendicitis (principal); R10.31 Right lower quadrant pain; I77.82 Antineutrophilic cytoplasmic antibody [ANCA] vasculitis; Z79.631 Long term (current) use of antimetabolite agent
CPT/HCPCS: 44970; 00840; 36415; 74176; 74177; 80048; 80076; 81001; 81025; 85025; 86140; 87086; 88304; 99140; 99284; 99285; A9270; J0330; J0665; J1100; J1171; J1885; J2250; J2270; J2405; J2704; J2710; J3010; J3490; J7030; J7120; Q9967